=== PATIENT | female | born 1955 | race Caucasian/White ===

== ENCOUNTER 2022-05-07 07:49 | Outpatient (CLI) | payer OTHER, SELFPAY ==
--- OUTSIDE RECORDS SUMMARY | 2022-05-07 08:08 | XMS_ITS | Encounter Summary ---
:1955 Author Organization [place] Address [address] [facility] [place] [address] Care Team Providers Name Role Phone Linh Moeller MD Primary Care Provider [phone] Linh Moeller MD Unavailable Linh Moeller MD Unavailable Reason for Visit Reason Comments URI Encounter Details Date Type Department Care Team Description 09/25/2015 Office Visit [facility] Linh Moeller Viral URI with cough (Primary Dx); Clinic Chuck Londono MD Advanced directives, counseling/discussi on; [address] [facility] [address] [facility] Visit for screening mammogram; [place], [place] [address] Cervical cancer screening; [id number] Encounter for screening colonoscopy [phone] Social History Tobacco Use Types Packs/Day Years Used Date Smoking Tobacco: Never Smokeless Tobacco: Never Alcohol Use Standard Drinks/Week Comments Yes 0 (1 standard drink = 0.6 oz pure alcoho l) rare Sex Assigned at Date Recorded Not on file documented as of this encounter Last Filed Vital Signs Vital Sign Reading Time Taken Comments Blood Pressure 108/62 09/25/2015 7:51 AM ORDER BUILDER LOADER Pulse 68 09/25/2015 7:51 AM ORDER BUILDER LOADER Temperature 36.8 ??C (98.3 ??F) 09/25/2015 7:51 AM ORDER BUILDER LOADER Respiratory Rate - - Oxygen Saturation 96% 09/25/2015 7:51 AM ORDER BUILDER LOADER Inhaled Oxygen Concentration - - Weight 69.4 kg (153 lb) 09/25/2015 7:51 AM ORDER BUILDER LOADER Height 167.6 cm (5' 6) 09/25/2015 7:51 AM ORDER BUILDER LOADER Body Mass Index 24.69 09/25/2015 7:51 AM ORDER BUILDER LOADER documented in this encounter Patient Instructions Patient InstructionsLinh Moeller MD - 09/25/2015 8:53 AM CST Consider Mucinex R BUILDER LOADER documented in this encounter Progress Notes Linh Moeller MD - 09/25/2015 7:53 AM CST SUBJECTIVE: Rehana Tsang is a 59 year old female who presents to clinic today for the following health issues: RESPIRATORY SYMPTOMS ?? Duration: x 7 days ?? Description rhinorrhea, nasal congestion, sore throat, facial pain/pressure, productive cough, fever, chills, headache, fatigue/malaise and eyes are watering ?? Severity: moderate ?? Accompanying signs and symptoms: see above ?? History (predisposing factors): none ?? Precipitating or alleviating factors: None ?? Therapies tried and outcome: Took Therimax last night Feels like symptoms have been stable over the past few days. No fevers in the past couple of days. Has not been able to work due to her illness. Problem list and histories reviewed & adjusted, as indicated. Additional history: none Patient Active Problem List Diagnosis ??? PURE HYPERCHOLESTEROLEM ??? 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 Advanced directives, counseling/discussion Past Surgical History Procedure Laterality Date ??? C jewel hole finish opener procedure date: 2000 hysterectomy abdominal endomet ??? Rw jewel hole finish opener (abstracted) 1976 appy ??? Rw jewel hole finish opener (abstracted) kidney stones ??? C vag hyst,rmv tube/ovary 2000 History Substance Use Topics ??? Smoking status: Never Smoker ??? Smokeless tobacco: Never Used ??? Alcohol Use: 0.0 oz/week 0 Standard drinks or equivalent per week Comment: rare Family History Problem Relation Age of Onset ??? Breast Cancer Maternal Grandmother ??? Heart Disease Father DC age 52 Current Outpatient Prescriptions Medication Sig Dispense Refill ??? predniSONE (DELTASONE) 20 MG tablet Take 2 tablets (40 mg) by mouth daily for 5 days 10 tablet 0 ??? albuterol (PROAIR HFA, PROVENTIL HFA, VENTOLIN HFA) 108 (90 BASE) MCG/ACT inhaler Inhale 2 puffsinto the lungs every 4 hours as needed 1 Inhaler 1 ??? guaiFENesin-codeine (ROBITUSSIN AC) 100-10 MG/5ML SOLN Take 10 mLs by mouth every 4 hours as needed for cough 120 mL 0 ??? LIPITOR 80 MG OR TABS one daily 30 5 ROS: Constitutional, HEENT, cardiovascular, pulmonary, gi and gu systems are negative, except as otherwise noted. OBJECTIVE: BP 108/62 mmHg Pulse 68 Temp(Src) 98.3 ??F (36.8 ??C) (Oral) Ht 5' 6 (1.676 m) Wt 153 lb (69.4 kg) BMI 24.71 kg/m2 SpO2 96% LMP Body mass index is 24.71 kg/(m^2). GENERAL: healthy, alert and no distress EYES: Eyes grossly normal to inspection, conjunctivae and sclerae normal HENT: Bilateral TMs with serous effusion, mild pharyngitis, cobblestoning of the posterior pharynx, boggy turbinates NECK: Anterior cervical chain lymphadenopathy bilaterally RESP: Good air entry, lungs symmetric, harsh nonproductive cough, no wheezes CV: regular rate and rhythm, normal S1 S2, no S3 or S4, no murmur, click or rub Diagnostic Test Results: none ASSESSMENT/PLAN: 1. Viral URI with cough: Discussed treatment options. Advised to call should symptoms worsen despitetreatment. - predniSONE (DELTASONE) 20 MG tablet; Take 2 tablets (40 mg) by mouth daily for 5 days Dispense: 10tablet; Refill: 0 - albuterol (PROAIR HFA, PROVENTIL HFA, VENTOLIN HFA) 108 (90 BASE) MCG/ACT inhaler; Inhale 2 puffs into the lungs every 4 hours as needed Dispense: 1 Inhaler; Refill: 1 - guaiFENesin-codeine (ROBITUSSIN AC) 100-10 MG/5ML SOLN; Take 10 mLs by mouth every 4 hours as needed for cough Dispense: 120 mL; Refill: 0 2. Advanced directives, counseling/discussion 3. Visit for screening mammogram: Historical mammogram entered - MA Screening Digital Bilateral 4. Cervical cancer screening: History of Pap smear entered - PAP imaged thin layer screen 5. Encounter for screening colonoscopy: Historical colonoscopy entered - COLONOSCOPY Follow-up as needed for ongoing issues Linh Moeller MD [facility] R BUILDER LOADER documented in this encounter Nursing Notes Andrew Valentine CMA - 09/25/2015 7:58 AM CST Chief Complaint Patient presents with ??? URI Initial BP 108/62 mmHg Pulse 68 Temp(Src) 98.3 ??F (36.8 ??C) (Oral) Ht 5' 6 (1.676 m) Wt 153 lb (69.4 kg) BMI 24.71 kg/m2 SpO2 96% LMP Estimated body mass index is 24.71 kg/(m^2) as calculated from the following: Height as of this encounter: 5' 6 (1.676 m). Weight as of this encounter: 153 lb (69.4 kg). BP completed using cuff size: dinesh Valentine CMA R BUILDER LOADER documented in this encounter Plan of Treatment Not on filedocumented as of this encounter Procedures Procedure Name Priority Date/Time Associated Diagnosis Comme nts PAP IMAGED THIN LAYER Routine 09/23/2014 Cervical cancer Res ults for this SCREEN screening procedure are i n the results section . MA SCREENING DIGITAL Routine 09/23/2014 Visit for screening Results for this BILATERAL mammogram procedure are i n the results section . COLONOSCOPY Routine 09/23/2014 Encounter for Results for th is screening colonoscopy proced ure are in the results section . documented in this encounter Results COLONOSCOPY (09/23/2014) P athologist Signature COLONOSCOPY nl Comment: hx Specimen (Source) Anatomical Location Collection Method / Collectio n Time Received Time / Laterality Volume 09/23/2014 Linh Moeller MD PROCEDURES PAP imaged thin layer screen (09/23/2014) P athologist Signature PAP Date NL MISYS Comment: hx PAP MISYS Specimen (Source) Anatomical Location Collection Method Collection Time Received Time / Laterality / Volume Cytologic material 09/23/2014 (specimen) Linh Moeller MD LAB - OPTIME CLINICAL SPECIM EN Performing Organization Address City/State/ZIP Code Phon e Number MISYS [place] Screening Digital Bilateral (09/23/2014) P athologist Signature MAMMOGRAM NL Comment: HX Anatomical Region Laterality Modality Breast Bilateral Other Specimen (Source) Anatomical Location Collection Method / Collectio n Time Received Time / Laterality Volume 09/23/2014 Linh Moeller MD IMG MAMMOGRAPHY ORDERABLES documented in this encounter Visit Diagnoses Diagnosis Viral URI with cough - Primary Acute upper respiratory infections of un specified site Advanced directives, counseling/discussi on Other specified counseling Visit for screening mammogram Other screening mammogram Cervical cancer screening Screening for malignant neoplasm of the cervix Encounter for screening colonoscopy Special screening for malignant neoplasm s, colon documented in this encounter Care Teams Burglary Investigator Relationship Specialty Start Date End Date Linh Moeller MD PCP - General Family Practice 09/25/15 [address] [place] [address] Linh Moeller MD PCP - Assigned PCP 09/07/15 09/27/18 [address] [place] [address] Linh Moeller MD Assigned PCP 09/07/15 09/24/18 [address] [place] [address] documented as of this encounter
--- OUTSIDE RECORDS SUMMARY | 2022-05-07 08:08 | XMS_ITS | Encounter Summary ---
:1955 Author Organization [place] Address [address] [place] [address] Care Team Providers Name Role Phone Linh Moeller MD Primary Care Provider [phone] Encounter Details Date Type Department Care Team Description 06/10/[address] [facility] Kelin Sierra MD Encounter for [facility] screening for other [address] [facility] [address] [facility] viral diseases ROBYN CRAMER [id number] 410 (Primary Dx) [phone] [place], [place] [address] (Wo rk) Social History Tobacco Use Types Packs/Day Years Used Date Smoking Tobacco: Never Smokeless Tobacco: Never Alcohol Use Standard Drinks/Week Comments Yes 0 (1 standard drink = 0.6 oz pure alcoho l) rare Sex Assigned at Date Recorded Not on file documented as of this encounter Plan of Treatment Not on filedocumented as of this encounter Results Asymptomatic COVID-19 Virus (Coronavirus) by PCR (06/10/2020 3:53 PM LEAD INFRASTRUCTURE ARCHITECT) [facility] Method Time Signature COVID-19 Nasopharyngeal 06/10/2020 [facility] Virus PCR to 4:04 PM LEAD INFRASTRUCTURE ARCHITECT CLINICS [facility] Source COVID-19 Not Detected 06/11/2020 [facility] Virus PCR to 8:31 PM LEAD INFRASTRUCTURE ARCHITECT RESEARCH AND U [facility] - DIAGNOSTIC Result LABORATORY, [facility] Comment: Collection of multiple specimens from th e same patient may be necessary to detect the virus. The possibility of a f alse negative should be considered if the patient's recent exposure or clinica l presentation suggests 2019 nCOV infection and diagnostic tests for other causes of illness are negative. Repeat testing may be considered in this setting. Patient sample was heat inactivated and amplified using the HDPCR SARS-CoV-2 assay (ERUCES.). The HDPCRTM MINESH S-CoV-2 assay is a reverse deputy sheriff/investigator real-time polymerase chain reaction (qRT-PCR) test intended for the qualitative detection of nucleic aci d from SARS-CoV-2 in human nasopharyngeal swabs, oropharyngeal swabs, anterior nasal swabs, mid-turbinate nasal swabs a s well as nasal aspirate, nasal wash, and bronchoalveolar lavage (BAL) specime ns from individuals who are suspected of COVID-19 by their healthcare provider . A negative result does not rule out the presence of real-time PCR inhibitors in the specimen or COVID-19 RNA in serina ntrations below the limit of detection of the assay. The possibility of a fals e negative should be considered if the patients recent exposure or clinical pr esentation suggests COVID-19. Additional testing or repeat testing req uires consultation with the laboratory. Nasopharyngeal specimen is the preferred choice for swab-based SARS CoV2 testing. When collection of a nasopharyn geal swab is not possible the following are acceptable alternatives: an oropharyngeal (OP) specimen collected by a healthcare professional, or a nasal mid-turbinate (NMT) swab collected by a healthcare professional or by onsite self-collection (using a flocked tapered swab), or an anterior nares specimen collected by a healthcare profe ssional or by onsite self-collection (using a round foam swab). (Centers for Disease Control) Testing performed by [facility] ([facility]) [address] [place] [address] [place] [id number] The test performance characteristics wer e determined by [facility]. It has not been cleared or approved by the FDA. The laboratory is regulated under the Cl inical Laboratory Improvement Amendments of 1988 (CLIA-88) as qualifie d to perform high-complexity testing. This test is used for clinical purposes. It should not be regarded as investigational or for research. Specimen (Source) Anatomical Collection Method Collection Time Re ceived Time Location / / Volume Laterality Specimen from 06/10/2020 3:53 06/10/2020 nasopharyngeal PM LEAD INFRASTRUCTURE ARCHITECT 3:54 PM LEAD INFRASTRUCTURE ARCHITECT structure (specimen) Tiana Sierra MD LAB - MICRO GENERAL ORDERABL ES Performing Organization Address City/State/ZIP Code Phon e Number [facility] [place] [place] [address] DIAGNOSTIC LABORATORY, [address] [facility] [address] [address] K[place]ERINE documented in this encounter Visit Diagnoses Diagnosis Encounter for screening for other viral diseases - Primary documented in this encounter Care Teams Switch Coupler Relationship Specialty Start Date End Date Linh Moeller MD PCP - General Family Practice 09/25/15 [address] [place] [address] documented as of this encounter
--- OUTSIDE RECORDS SUMMARY | 2022-05-07 08:08 | XMS_ITS | Encounter Summary ---
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) Encounter for breast reconstruction following mastectomy [Z42.1] Periop Services Malignant neoplasm of upper- outer quadrant of right female breast (H) [C50.411] [address], [address] Procedures HC REPLACE TISSUE OPENER TENDER HC REMOVE W/O INSERT PROSTH TISSUE OPENER TENDER HC ENLARGE BREAST WITH IMPLANT HC REMOVAL OF BREAST IMPLANT HC REMOVAL OF IMPLANT MATERIAL LEFT REMOVAL OF TISSUE OPENER TENDER EXCHANGE OF SILICONE BREAST IMPLANT [address] [place] [place] [address] Phone: Referral ID Status Reason Start Date Expiration Date Visits Requ ested Visits Authorized [id number] 1 1 Encounter Details Date Type Department Care Team Description 06/13/2020 Anesthesia Event [facility] Ramses Tripp MD [facility] [address] [id number] Niharika TejadaOP Katty Alex, MANAGER TREASURY SURG RN [address] [id number] Services [address], [address] [place] [address] Anesthesia Record Procedure Summary Procedure Name Responsible Anesthesia Start Anesthesia Stop Time Anesthesiologist Time LEFT REMOVAL OF Rick Tripp MD 06/13/20 1134 06/13/20 1 331 TISSUE OPENER TENDER (Left: Breast) Events Date Time Event Comment 06/13/2020 1134 An Start 1134 An Start Data 1134 Quick Note H&P BP 86/64 1145 MD Present 1145 An Induction 1147 An LMA 1201 AN INCISION 1255 MD Present 1321 LMA Removed 1325 an stop data 1331 An Stop Electronically s igned by Katty Alex APRN CRNA on June 13, 2020 1:35 PM Name Total dexamethasone 4mg/mL 4 mg ePHEDrine 5 mg/mL 17.5 mg fentaNYL (SUBLIMAZE) injection 100 mcg glycopyrrolate 0.2mg/mL 0.1 mg lidocaine 2% 100 mg midazolam 1mg/mL 2 mg ondansetron 2mg/mL 4 mg phenylephrine (SHANAE-SYNEPHRINE) injection 800 mcg propofol (DIPRIVAN) injection 10 mg/mL vial 150 mg propofol infusion (mcg/kg/min) 124.25 mg ceFAZolin (ANCEF) intermittent infusion 2 g in 100 mL dextrose PRE-MIX 2 g LR 1,300 mL Agents Name NO HELIOX O2 N2O Air Exp Sevoflurane Exp Isoflurane Exp Desflurane Exp N2O Ins Sevoflurane Ins Isoflurane Ins Desflurane O2 Auxiliary Blood No blood administrations on file. Lines, Drains, and Airways Type Details Placement Removal Incision/Surgical Site 06/13/20; 1209; Right; 06/13/20 1209 by Chest; PORT REMOVAL Emelyn David RN Incision/Surgical Site 06/13/20; 1257; Left; 06/13/20 1257 by Breast Emelyn David RN Supraglottic Airway Placement Date: 06/13/20 1147 by 06/13/20 13 23 by 06/13/20; Placement Katty Aelx Rebecca Time: 1147 (created ALLEN Franco CRNA, APRN CR NA via procedure documentation); Airway Type: Standard LMA; Mask Ventilation: 1; LMA Size: 4; Airway Brand: LMA Unique; Attempts: 1 documented in this encounter Social History Tobacco Use Types Packs/Day Years Used Date Smoking Tobacco: Never Smokeless Tobacco: Never Alcohol Use Standard Drinks/Week Comments Yes 0 (1 standard drink = 0.6 oz pure alcoho l) rare Sex Assigned at Date Recorded Not on file COVID-19 Exposure Response Date Recorded In the last month, have you been in contact with No / Unsure 06/13/2020 9:02 AM JAVA USER INTERFACE DEVELOPER someone who was confirmed or suspected to have Coronavirus / COVID-19? 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 Anesthesia Type: General Note: Anesthesia Post Evaluation Patient location during evaluation: Bedside Patient participation: Able to fully participate in evaluation Level of consciousness: awake and alert Pain management: adequate Airway patency: patent Cardiovascular status: acceptable Respiratory status: acceptable Hydration status: acceptable PONV: none Last vitals: Vitals: 06/13/20 1345 06/13/20 1400 06/13/20 1515 BP: 105/61 104/56 108/58 Pulse: 80 79 Resp: 10 14 14 Temp: 35.9 ??C (96.6 ??F) 35.9 ??C (96.6 ??F) SpO2: 99% 100% 99% Electronically Signed By: Rick Tripp MD June 13, 2020 4:30 PM USER INTERFACE DEVELOPER Anesthesia Procedure Notes - Katty Alex APRN CRNA - 06/13/2020 12:04 PM CSTAssociated Order(s): Airway Airway Date/Time: 06/13/2020 11:47 AM Staff - SURG RN: Katty Alex APRN SURG RN Performed By: SURG RN Consent for Airway Urgency: elective Indications and Patient Condition Indications for airway management: kimi-procedural Induction type:intravenousMask difficulty assessment: 1 - vent by mask Final Airway Details Final airway type: supraglottic airway Endotracheal Airway Details Secured with: commercial tube cervantes and pink tape Post intubation assessment Placement verified by: capnometry and equal breath sounds Number of attempts at approach: 1 Secured with:commercial tube cervantes and pink tape Ease of procedure: easy Dentition: Intact and Unchanged USER INTERFACE DEVELOPER Anesthesia Preprocedure Evaluation - Rick Tripp MD - 06/13/2020 9:56 AM CST Anesthesia Pre-Procedure Evaluation Patient: Rehana Merino : 1955 Preoperative Diagnosis: Encounter for breast reconstruction following mastectomy [Z42.1] 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 Absence of menstruation ??? Acute upper respiratory infections of unspecified site 10/02/03 ??? Endometriosis, site unspecified 2000 ??? Irritable bowel syndrome ??? Malignant neoplasm of ovary (H) ??? Migraines ??? Noninfectious ileitis IBS ??? Other calculus in bladder ??? Outcome of delivery, single liveborn X2 ??? Pure hypercholesterolemia ??? Unspecified hemorrhoids without mention of complication Past Surgical History: Procedure Laterality Date ??? BREAST SURGERY Bilateral 08/2019 mastectomy ??? BREAST SURGERY 12/2019 breast reconstruction ??? C ECCLESIASTICAL WORKER PROCEDURE DATE: 2000 hysterectomy abdominal endomet ??? C VAG HYST,RMV TUBE/OVARY 2000 ??? RW ECCLESIASTICAL WORKER (ABSTRACTED) 1975 appy ??? RW ECCLESIASTICAL WORKER (ABSTRACTED) kidney stones Anesthesia Evaluation . Pt has had prior anesthetic. Type: General ROS/MED HX ENT/Pulmonary: Neurologic: (+)migraines, Cardiovascular: (+) Dyslipidemia, ----. : . . . :. . Previous cardiac testing Echodate:01/2020results:Normal EF, I/IVLV diastolic dysfunctiondate: results: date: results: date: results: METS/Exercise Tolerance: Hematologic: Musculoskeletal: GI/Hepatic: Renal/Genitourinary: Endo: Psychiatric: Infectious Disease: Malignancy: (+) Malignancy History of Breast Breast CA status post Surgery. Other: Lab Results Component Value Date TSH 3.30 06/23/2004 Preop Vitals BP Readings from Last 3 Encounters: 06/13/20 103/53 09/25/15 108/62 06/23/04 102/60 Pulse Readings from Last 3 Encounters: 06/13/20 78 09/25/15 68 06/23/04 80 Resp Readings from Last 3 Encounters: 06/13/20 18 SpO2 Readings from Last 3 Encounters: 06/13/20 96% 09/25/15 96% Temp Readings from Last 1 Encounters: 06/13/20 36.3 ??C (97.3 ??F) (Oral) Ht Readings from Last 1 Encounters: 06/13/20 1.676 m (5' 6) Wt Readings from Last 1 Encounters: 06/13/20 71 kg (156 lb 9.6 oz) Estimated body mass index is 25.28 kg/m?? as calculated from the following: Height as of this encounter: 1.676 m (5' 6). Weight as of this encounter: 71 kg (156 lb 9.6 oz). Anesthesia Plan History & Physical Review History and physical reviewed and following examination; no interval change. ASA Status: 3 . NPO Status: > 8 hours Plan for General (LMA) with Intravenous and Propofol induction. Maintenance will be Balanced. PONV prophylaxis: Ondansetron (or other 5HT-3) and Dexamethasone or Solumedrol Postoperative Care Postoperative pain management: Multi-modal analgesia. Consents Anesthetic plan, risks, benefits and alternatives discussed with: Patient.. 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 Anesthesia Type: General Note: Airway :Nasal Cannula Patient transferred to:PACU Comments: At end of procedure, spontaneous respirations, adequate tidal volumes, followed commands to voice, LMA removed atraumatically, airway patent after LMA removal. Oxygen via nasal cannula at 3 liters per minute to PACU. Oxygen tubing connected to wall O2 in PACU, SpO2, NiBP, and EKG monitors and alarms on and functioning, Malika Hugger warmer connected to patient gown, report on patient's clinical status given to EXTRACTIONS TECHNICIAN, RN questions answered.Handoff Report: Identifed the Patient, Identified the Reponsible Provider, Reviewed the pertinent medical history, Discussed the surgical course, Reviewed Intra-OP anesthesia mangement and issues during anesthesia, Set expectations for post- procedure period and Allowed opportunity for questions and acknowledgement of understanding Vitals: (Last set prior to Anesthesia Care Transfer) DEANNA VITALS 06/13/2020 1255 - 06/13/2020 1334 06/13/2020 Resp Rate (set): 10 108/65 SPO2 99 HR 81 Electronically Signed By: Katty Alex APRN CRNA June 13, 2020 1:34 PM USER INTERFACE DEVELOPER documented in this encounter Plan of Treatment Not on filedocumented as of this encounter Procedures Procedure Name Priority Date/Time Associated Comments Diagnosis ANE AIRWAY Routine 06/13/2020 12:04 Results for this SUPRAGLOTTIC PM JAVA USER INTERFACE DEVELOPER procedure are i n PERFORMABLE the results section. documented in this encounter Results ANE AIRWAY SUPRAGLOTTIC PERFORMABLE (06/13/2020 12:04 PM JAVA USER INTERFACE DEVELOPER) Narrative Katty Alex APRN CRNA - 05/26 12:04 PM JAVA USER INTERFACE DEVELOPER Katty Alex APRN CRNA ? 06/13/2020 12:05 PM Airway Date/Time: 06/13/2020 11:47 AM Staff - SURG RN: Katty Alex APRN CRNA Performed By: DEANNA Consent for Airway Urgency: elective Indications and Patient Condition Indications for airway management: kimi- procedural Induction type:intravenousMask difficult y assessment: 1 - vent by mask Final Airway Details Final airway type: supraglottic airway Endotracheal Airway Details Secured with: commercial tube cervantes and pink tape Post intubation assessment Placement verified by: capnometry and eq ual breath sounds Number of attempts at approach: 1 Secured with:commercial tube cervantes and pink tape Ease of procedure: easy Dentition: Intact and Unchanged Rick Tripp MD [place] [facility] documented in this encounter Visit Diagnoses Not on filedocumented in this encounter Administered Medications Inactive Administered Medications - up to 3 most recent administrations Medication Order MAR Action Action Date Dose Rate Site ceFAZolin (ANCEF) intermittent Given 06/13/2020 11:55 AM JAVA USER INTERFACE DEVELOPER 2 g infusion 2 g in 100 mL dextrose PRE-MIX Routine, 2 g, Intravenous, PRE-OP/PRE-PROCEDURE, Starting on Tova 06/13/20 at 0913, For 1 dose, Give first dose within 1 hour PRIOR to incision. If patient weight is greater than or equal to 120 kg increase dose to 3 g., Indications: Perioperative Pharmacoprophylaxis, Pre-procedure dexamethasone (DECADRON) injection Given 06/13/2020 11:50 AM JAVA USER INTERFACE DEVELOPER 4 mg PRN, Administer over 1 Minutes, Starting on Tova 06/13/20 at 1150, Anesthesia Intra-op ePHEDrine injection Given 06/13/2020 12:44 PM JAVA USER INTERFACE DEVELOPER 5 mg PRN, Starting on Tova 06/13/20 at 1152, Anesthesia Intra-op Given 06/13/2020 12:13 PM JAVA USER INTERFACE DEVELOPER 7.5 mg Given 06/13/2020 11:52 AM JAVA USER INTERFACE DEVELOPER 5 mg fentaNYL (PF) (SUBLIMAZE) injection Given 06/13/2020 12:29 PM JAVA USER INTERFACE DEVELOPER 25 mcg PRN, Administer over 3-5 Minutes, Starting on Tova 06/13/20 at 1141, Anesthesia Intra-op Given 06/13/2020 12:07 PM JAVA USER INTERFACE DEVELOPER 25 mcg Given 06/13/2020 11:41 AM JAVA USER INTERFACE DEVELOPER 50 mcg glycopyrrolate (ROBINUL) injection Given 06/13/2020 12:18 PM JAVA USER INTERFACE DEVELOPER 0.1 mg PRN, Administer over 1-2 Minutes, Starting on Tova 06/13/20 at 1218, Anesthesia Intra-op lactated ringers infusion New Bag 06/13/2020 12:23 PM JAVA USER INTERFACE DEVELOPER Intravenous, CONTINUOUS PRN, Anesthesia Intra-op, Starting on Tova 06/13/20 at 1137, Until Tova 06/13/20 at 1335 New Bag 06/13/2020 11:37 AM JAVA USER INTERFACE DEVELOPER lidocaine 2% injection (MDV) Given 06/13/2020 11:45 AM JAVA USER INTERFACE DEVELOPER 100 mg PRN, Starting on Tova 06/13/20 at 1145, Anesthesia Intra-op midazolam (VERSED) injection Given 06/13/2020 11:36 AM JAVA USER INTERFACE DEVELOPER 2 mg Administer over 2 Minutes, PRN, Starting on Tova 06/13/20 at 1136, Anesthesia Intra-op ondansetron (ZOFRAN) injection Given 06/13/2020 12:52 PM JAVA USER INTERFACE DEVELOPER 4 mg PRN, Administer over 2-5 Minutes, Starting on Tova 06/13/20 at 1252, Anesthesia Intra-op phenylephrine (SHANAE-SYNEPHRINE) injection Bolus 06/13/2020 12:44 PM JAVA USER INTERFACE DEVELOPER 100 mcg CONTINUOUS PRN, Starting on Tova 06/13/20 at 1148, Anesthesia Intra-op Bolus 06/13/2020 12:31 PM JAVA USER INTERFACE DEVELOPER 100 mcg Bolus 06/13/2020 12:24 PM JAVA USER INTERFACE DEVELOPER 50 mcg propofol (DIPRIVAN) infusion New Bag 06/13/2020 11:45 AM 25 mcg/kg/min 10.7 mL/hr Intravenous, CONTINUOUS PRN, JAVA USER INTERFACE DEVELOPER Starting on Tova 06/13/20 at 1145, Anesthesia Intra-op propofol (DIPRIVAN) injection 10 mg/mL v ial Given 06/13/2020 11:45 AM JAVA USER INTERFACE DEVELOPER 150 mg PRN, Starting on Tova 06/13/20 at 1145, Anesthesia Intra-op documented in this encounter Care Teams Gusset Folder Relationship Specialty Start Date End Date Linh Moeller MD PCP - General Family Practice 09/25/15 [address] [place] [address] documented as of this encounter
--- OUTSIDE RECORDS SUMMARY | 2022-05-07 08:08 | XMS_ITS | Encounter Summary ---
:1955 Author Organization [facility] Address [address] [place] [address]. [place] [address] Care Team Providers Name Role Phone Uvaldo Hills MD Unavailable Reason for Visit Reason Comments Physical Encounter Details Date Type Department Care Team Description 06/23/2004 Office Visit [facility] Uvaldo Hills MD ROUTINE MEDICAL EXAM (Primary Dx); System in [facility] HY PERCHOLESTEROLEM; SENIOR CONSTRUCTION MANAGER [place] [facility]TOMAT[facility] FEMALE [facility]ACT[facility] STATE [address] [place] [address] [address] [address] [place], [place] [phone] (Wo rk) Social History Tobacco Use Types Packs/Day Years Used Date Smoking Tobacco: Never Assessed Sex Assigned at Date Recorded Not on file documented as of this encounter Last Filed Vital Signs Vital Sign Reading Time Taken Comments Blood Pressure 102/60 06/23/2004 9:57 AM SECONDARY SCHOOL SPECIAL ED TEACHER Pulse 80 06/23/2004 9:57 AM [employer] S[employer] SPECIAL ED TEACHER Temperature - - Respiratory Rate - - Oxygen Saturation - - Inhaled Oxygen Concentration - - Weight 62.1 kg (137 lb) 06/23/2004 9:57 AM SEC[employer]ARY SCHOOL SPECIAL ED TEACHER Height 168.1 cm (5' 6.2) 06/23/2004 9:57 AM SECONDARY SCHOOL SPECIAL ED TEACHER Body Mass Index 21.98 06/23/2004 9:57 AM SEC[employer] SCHOOL SPECIAL ED TEACHER documented in this encounter Progress Notes 06/23/2004 9:30 AM SECONDARY SCHOOL SPECIAL ED TEACHER Rehana is a 48 year old white female, SAB1, here for her annual exam. She has had ANTHONY, BSO because of endometriosis. She is on premarin 0.9 mg daily, but has noted hot flashes as night in the last couple of months. She has noted spotting but is not sure if it vaginal or rectal. She does have hemorrhoids. She is on Lipitor for elevated cholesterol. Sylvia has noted stress urine incont. with exercising. She wears a pad when she is active but not at other times. It has not changed her life style or activities. Sanitation Worker Cleaning Equipment HX: no abnormal paps, no infections, PAST MEDICAL HISTORY: Hyperlipidemia surgical menopause history endometriosis PAST SURGICAL HISTORY: Review of patient's past surgical history indicates: SENIOR CONSTRUCTION MANAGER PROCEDURE DATE: 2000 Comment: hysterectomy abdominal endomet RW SENIOR CONSTRUCTION MANAGER (ABSTRACTED) 1975 Comment: appy RW SENIOR CONSTRUCTION MANAGER (ABSTRACTED) Comment: kidney stones Meds as of 06/23/2004: CLIMARA 0.075 MG/24HR TD PTWK 1 patch q week Lipitor 80 mg daily ALLERGIES: No Known Allergies Family HX: Review of patient's family history indicates: Diabetes No family hx of Stroke No family hx of Breast CA Maternal Grandmother Colon CA No family hx of Prostatic CA No family hx of Alzheimers No family hx of Cancer No family hx of Heart Father Comment: mi Thyroid No family hx of REVIEW OF SYSTEMS: Otherwise negative unless specified in HPI. NEUROLOGIC: negative EYES: negative,exam yearly ENT: negative, dental cleaning every 6 mo GI: hemorrhoids BREAST: negative : negative CORE BAKER: negative CV: negative PULMONARY: negative MUSCULOSKELETAL: negative PSYCH: negative SKIN: negative Soc Hx: Social History Marital Status: Spouse Name: Years of Education: Number of children: Social History Main Topics Tobacco Use: No Alcohol Use: rare Drug Use: No Sexually Active: yes Other Topics Concern BLOOD TRANSFUSIONS Yes Comment: hysterectomy 2000 CAFFEINE No SLEEP CONCERN No STRESS CONCERN No WEIGHT CONCERN No DIET No BACK CARE No EXERCISE Yes SEAT BELT Yes SELF EXAMS Yes Social History Narrative None on file PHYSICAL EXAM: This is a well-developed, well-nourished female in no apparent distress. VITALS: as above Neruo: grossly intact EYES: LAINE, EOM's intact. ENT: oral cavity normal, no neck nodes, thyroid not enlarged, neck supple Lung CTA, no wheezing, easy respairations Heart: RRR, S1 and S2 clear, no murmur Back: no spinal or CVA tenderness Breast: soft, nontender, no mass or axillary lymphadenopathy or discharge. ABD: thin, soft, nontender, no masses Pelvic: normal ext gen, normal BUS, no lesions, no adenopathy Urethra: normal meatus Vagina: normal, no lesions. mod-large cystocele, minimal rectocele. No lesions or evidence of causeof bleeding. Cervix and Uterus and ovaries: surgically abscent. Adnexa: nontender with out masses or iregularities RV:confirms above with no lesions palpable, hemorrhoids present. EXT: no edema, calf tenderness or significant varicosities Skin: no lesions of concern Assessment: Annual exam possible rectal bleeding surgical menopause. Plan: mammogram to be done in [place] TSH Change to [place] .75mg patch Ask Dr. Jeter for consult with GI med. documented in this encounter Nursing Notes 06/23/2004 9:30 AM CST >> SYLVIA LIN 06/23/2004 9:58 am phy,wants to change the premarin, ? going on patch, Will get mammo in [place] Pain Questionnaire:Is your visit today because of Pain? NO documented in this encounter Plan of Treatment Not on filedocumented as of this encounter Procedures Procedure Name Priority Date/Time Associated Comments Diagnosis HCL TSH Routine 06/23/2004 10:50 AM Routine Medical Resul ts for this SECONDARY SCHOOL SPECIAL ED TEACHER Exam procedure are i n the results section. HC VENOUS COLLECTION Routine 06/23/2004 10:45 AM Routine Medic al SEC[employer]ARY SCHOOL SPECIAL ED TEACHER Exam documented in this encounter Results TSH- (06/23/2004 10:50 AM SECONDARY SCHOOL SPECIAL ED TEACHER) P athologist Signature TSH 3.30 0.4 - 5.0 [facility] Specimen Anatomical Collection Method Collection Time Receive d Time (Source) Location / / Volume Laterality 06/23/2004 10:50 06/23/2004 AM [employer] SPECIAL ED TEACHER 10:56 AM [employer] SPECIAL ED TEACHER Uvaldo Hills MD LABORATORY Performing Organization Address City/State/ZIP Code Phon e Number [facility] [address] documented in this encounter Visit Diagnoses Diagnosis Routine general medical examination at a health care facility - Primary Pure hypercholesterolemia Symptomatic menopausal or female climact ming states documented in this encounter Care Teams Engine Boss Relationship Specialty Start Date End Date Uvaldo Hills MD PCP - Obstetrics/Gynecology 03/28/0305/[address] [place] [address] documented as of this encounter
--- OUTSIDE RECORDS SUMMARY | 2022-05-07 08:08 | XMS_ITS | Clinical Summary ---
:1955 Author Organization [place] Address [address] [facility] [place] [address] Care Team Providers Name Role Phone Linh Moeller MD Primary Care Provider [phone] Allergies Active Allergy Reactions Severity Noted Date Comments No Known Allergies 06/23/2004 Medications Medication Sig Dispensed Refills Start Date End Date Status SERTRALINE HCL PO Take 100 mg by 0 Active mouth daily ezetimibe (ZETIA) 10 MG Take 10 mg by 0 Active tablet mouth daily SIMVASTATIN PO Take 80 mg by 0 A ctive mouth At Bedtime acetaminophen (TYLENOL) Take 500-1,000 mg 0 Active 500 MG tablet by mouth every 6 hours as needed for mild pain Multiple Take by mouth 0 Active Vitamins-Minerals daily (MULTIVITAMIN ADULT PO) oxyCODONE-acetaminophen Take 1-2 tablets 30 tablet 0 0 Active (PERCOCET) 5-325 MG by mouth every 4 tabletIndications: hours as needed Status post breast for moderate to reconstruction severe pain senna-docusate Take 1-2 tablets 30 tablet 0 06/13/2020 Active (SENOKOT-S/PERICOLACE) by mouth 2 times 8.6-50 MG daily tabletIndications: Status post breast reconstruction montelukast (SINGULAIR) Take 1 tablet (10 90 tablet 1 06/13/20 20 Active 10 MG mg) by mouth At tabletIndications: Bedtime Status post breast reconstruction Active Problems Problem Noted Date Advanced directives, counseling/discussion 09/25/2015 Overview: Advance Care Planning 09/25/2015: ACP Faci litation Session: Rehana Tsang presented for ACP Facilitation session at the clinic. She was accompanied by self. Honoring Choices information provided and resources reviewed. She currently declined Pure hypercholesterolemia 06/23/2004 Symptomatic menopausal or female climacteric states Immunizations Name Administration Dates Next Due HEPA 12/08/2010, 10/31/2009 Tdap (Adacel,Boostrix) 04/28/2012 Family History Medical History Relation Comments Heart Disease Father [place] age 52 Breast Cancer Maternal Grandmother Relation Status Comments Father Maternal Grandmother Mother Alive Social History Tobacco Use Types Packs/Day Years Used Date Smoking Tobacco: Never Smokeless Tobacco: Never Alcohol Use Standard Drinks/Week Comments Yes 0 (1 standard drink = 0.6 oz pure alcoho l) rare Sex Assigned at Date Recorded Not on file Last Filed Vital Signs Vital Sign Reading Time Taken Comments Blood Pressure 108/58 06/13/2020 3:15 PM [facility] Pulse 79 06/13/2020 2:00 PM [facility] Temperature 35.9 ??C (96.6 ??F) 06/13/2020 2:00 PM [facility] Respiratory Rate 14 06/13/2020 3:15 PM [facility] Oxygen Saturation 99% 06/13/2020 3:15 PM [facility] Inhaled Oxygen Concentration - - Weight 71 kg (156 lb 9.6 oz) 06/13/2020 9:39 AM [facility] Height 167.6 cm (5' 6) 06/13/2020 9:39 AM [facility] Body Mass Index 25.28 06/13/2020 9:39 AM [facility] Plan of Treatment Health Maintenance Due Date Last Done Comments ANNUAL REVIEW OF HM ORDERS 1955 CT COLONOGRAPHY 1955 FIT-DNA (Cologuard) 1955 FIT 1955 FLEX SIG 1955 HIV SCREENING 1972 HEPATITIS C SCREENING 10/19/1975 LIPID 2002 YEARLY PREVENTIVE VISIT 06/23/2005 06/23/2004 MAMMO SCREENING 09/23/2016 09/23/2014 PAP 09/23/2017 09/23/2014 ADVANCE CARE PLANNING 09/24/2020 09/25/2015, 09/25/2015 COVID-19 Vaccine (3 - 10/07/2020 08/12/2020, 07/23/2020 Booster for Pfizer series) PHQ-2 (once per calendar 07/26/2021 09/25/2015 year) INFLUENZA VACCINE (#1) 2022 05/11/2020, 05/11/2019, 06/14/2017, Additional history exists DTAP/TDAP/TD IMMUNIZATION 04/28/2022 04/28/2012 (2 - Td or Tdap) COLONOSCOPY 09/23/2024 09/23/2014 COLORECTAL CANCER SCREENING 09/23/2024 ZOSTER IMMUNIZATION Completed 06/12/2018, 04/08/2018 HEPATITIS B IMMUNIZATION Aged Out No long er eligible based on patient 's age to complete this topic IPV IMMUNIZATION Aged Out No longer eligi ble based on patient 's age to complete this topic MENINGITIS IMMUNIZATION Aged Out No longe r eligible based on patient 's age to complete this topic Pneumococcal Vaccine: Aged Out No longer eligible Pediatrics (0 to 5 Years) based on patient's age and At-Risk Patients (6 to to co mplete this topic 64 Years) Medical Devices Implanted Type Area Cofounder Device Identifier Shelf Model / Expiration Serial / Lot Date Natrelle Inspira Cohesive Breast Implant Smooth Round Moderate Profile, Style Scm 310cc Left: ALLERGAN [id number] 06/10/2024 SCM-310 / Implanted: Qty: 1 on 06/13/2020 by Tiana Waller MD at [facility] Breast [id number] 19 / Explanted Type Area Cofounder Device Shelf Model / Identifier Expiration Date Ser ial / Lot Port Right: Explanted: Qty: 1 on 06/13/2020 by Tiana Waller MD at [facility] Chest Wall Insurance Payer Benefit Plan / Group Subscriber ID Effective Phone Addre ss Type Dates PREFERREDONE PREFERREDONE NON [id number] 2015-Pres [phone] [place] [phone] [place] [address] (Work) [phone] [place] Personal/Family Self 1955 [phone] [id number] (Home) [place] [address] Care Teams Plush Weaver Relationship Specialty Start Date End Date Linh Moeller MD PCP - General Family Practice 09/25/15 [address] [place], [place] [id number]
--- OUTSIDE RECORDS SUMMARY | 2022-05-07 08:08 | XMS_ITS | Encounter Summary ---
:1955 Author Organization [place] Address [address] [facility] [place] [address] Care Team Providers Name Role Phone Linh Moeller MD Primary Care Provider [phone] Encounter Details Date Type Department Care Team Description 06/10/2020 Orders Only [facility] Kelin Sierra MD Encounter for Clinic [facility] O NCOLOGY screening for other Laboratory [address] [facility] viral diseases [address] [address] [place], [place] [phone] ( Work) [address] [phone] Social History Tobacco Use Types Packs/Day Years Used Date Smoking Tobacco: Never Smokeless Tobacco: Never Alcohol Use Standard Drinks/Week Comments Yes 0 (1 standard drink = 0.6 oz pure alcoho l) rare Sex Assigned at Date Recorded Not on file COVID-19 Exposure Response Date Recorded In the last month, have you been in contact with No / Unsure 06/13/2020 9:02 AM PUTTYING AND CALKING SUPERVISOR someone who was confirmed or suspected to have Coronavirus / COVID-19? documented as of this encounter Plan of Treatment Not on filedocumented as of this encounter Procedures Procedure Name Priority Date/Time Associated Diagnosis Comme nts COVID-19 VIRUS Routine 06/10/2020 3:53 PM Encounter for Result s for this (CORONAVIRUS) BY PUTTYING AND CALKING SUPERVISOR screening for other proc edure are in PCR viral diseases the results section. documented in this encounter Results Asymptomatic COVID-19 Virus (Coronavirus) by PCR (06/10/2020 3:53 PM PUTTYING AND CALKING SUPERVISOR) [facility] Method Time Signature COVID-19 Nasopharyngeal 06/10/2020 [facility] Virus PCR to 4:04 PM PUTTYING AND CALKING SUPERVISOR CLINICS [facility] Source COVID-19 Not Detected 06/11/2020 [facility] Virus PCR to 8:31 PM PUTTYING AND CALKING SUPERVISOR RESEARCH AND [facility] - DIAGNOSTIC Result LABORATORY, [facility] Comment: Collection of multiple specimens from [...] was heat inactivated and amplified using the MindFusePCR SARS-CoV-2 assay ([employer].). The HDPCRTM MINESH S-CoV-2 assay is a reverse cable placer real-time polymerase chain reaction (qRT-PCR) test intended [...] (Centers for Disease Control) Testing performed by [facility] [address] [facility] [address] [facility] [address] The test performance characteristics wer e determined [...] Specimen from 06/10/2020 3:53 06/10/2020 nasopharyngeal PM PUTTYING AND CALKING SUPERVISOR 3:54 PM PUTTYING AND CALKING SUPERVISOR structure (specimen) Tiana Sierra MD LAB - MICRO GENERAL ORDERABL ES Performing Organization Address City/State/[facility] Code Phon e Number [facility] [place] [address] DIAGNOSTIC LABORATORY, [address] [facility] [address] [address] [place] documented in this encounter Visit Diagnoses Diagnosis Encounter for screening for other viral diseases documented in this encounter Care Teams Hop Farmer Relationship Specialty Start Date End Date Linh Moeller MD PCP - General Family Practice 09/25/15 [address] [place] [address] documented as of this encounter
--- OUTSIDE RECORDS SUMMARY | 2022-05-07 08:08 | XMS_ITS | Encounter Summary ---
:1955 Author Organization [place] Address [facility] [place] [address] Care Team Providers Name Role Phone Linh Moeller MD Primary Care Provider [phone] Encounter Details Date Type Department Care Team Description 06/10/2020 Travel Social History Tobacco Use Types Packs/Day Years Used Date Smoking Tobacco: Never Smokeless Tobacco: Never Alcohol Use Standard Drinks/Week Comments Yes 0 (1 standard drink = 0.6 oz pure alcoho l) rare Sex Assigned at Date Recorded Not on file COVID-19 Exposure Response Date Recorded In the last month, have you been in contact with No / Unsure 06/10/2020 3:49 PM ADJUNCT SPANISH INSTRUCTOR someone who was confirmed or suspected to have Coronavirus / COVID-19? documented as of this encounter Plan of Treatment Not on filedocumented as of this encounter Visit Diagnoses Not on filedocumented in this encounter Care Teams Printing Agent Relationship Specialty Start Date End Date Linh Moeller MD PCP - General Family Practice 09/25/15 [address] [place] [address] documented as of this encounter
--- OUTSIDE RECORDS SUMMARY | 2022-05-07 08:08 | XMS_ITS | Encounter Summary ---
:1955 Author Organization [place] Address [facility] [address] Care Team Providers Name Role Phone Uvaldo Hills MD Unavailable Reason for Visit Reason Onset Date Comments Refill Request 10/24/2004 [facility]ara Encounter Details Date Type Department Care Team Description 10/24/2004 Refill [facility] Uvaldo Hills MD Refill Request System in [facility] (climar a) QM CONSULTANT [address] [address] [place] [address] [phone] (Wo rk) Social History Tobacco Use Types Packs/Day Years Used Date Smoking Tobacco: Never Assessed Sex Assigned at Date Recorded Not on file documented as of this encounter Miscellaneous Notes Telephone Encounter - Edy Lassiter - 10/24/2004 3:20 PM CST Accepting this Rx will FAX it directly to the pharmacy. DYEING MACHINE OPERATOR documented in this encounter Plan of Treatment Not on filedocumented as of this encounter Visit Diagnoses Diagnosis Routine general medical examination at a health care facility documented in this encounter Care Teams Vehicle Check In Clerk Relationship Specialty Start Date End Date Uvaldo Hills MD PCP - Obstetrics/Gynecology 03/28/0305/[address] [address] documented as of this encounter
--- OUTSIDE RECORDS SUMMARY | 2022-05-07 08:08 | XMS_ITS | Encounter Summary ---
:1955 Author Organization [place] Address [facility] [place] [address] Care Team Providers Name Role Phone Uvaldo Hills MD Unavailable Reason for Visit Reason Comments *-*INCOMING RECORDS*-* From [facility] Encounter Details Date Type Department Care Team Description 10/01/2004 Abstract [facility] Solid Tire Tuber Machine OperatorFabian Incom ng Records : [facility] in [facility] - Medical Records [address] [address] Social History Tobacco Use Types Packs/Day Years Used Date Smoking Tobacco: Never Assessed Sex Assigned at Date Recorded Not on file documented as of this encounter Progress Notes Solid Tire Tuber Machine Operator, [facility] - 10/01/2004 10:41 AM CST *-*-*-* INCOMING RECORDS *-*-*-* Pertinent information has been abstracted out of Incoming Records. To see a complete copy of the Records please refer to the scan below. Thanks [facility], Solid Tire Tuber Machine Operator CTOR OF CATEGORY MANAGEMENT documented in this encounter Plan of Treatment Not on filedocumented as of this encounter Visit Diagnoses Not on filedocumented in this encounter Care Teams Mix Maker Relationship Specialty Start Date End Date Uvaldo Hills MD PCP - Obstetrics/Gynecology 03/28/0305/[address] [address] documented as of this encounter
--- OUTSIDE RECORDS SUMMARY | 2022-05-07 08:08 | XMS_ITS | Encounter Summary ---
:1955 Author Organization [place] Address [address] [place] [address] Care Team Providers Name Role Phone Linh Moeller MD Primary Care Provider [phone] Reason for Visit Auth/Cert Specialty Diagnoses / Procedures Referred By Contact Refer red To Contact Surgery Diagnoses Encounter for breast reconstruction following mastectomy Malignant neoplasm of upper-outer quadrant of right female breast (H) Encounter for breast reconstruction following mastectomy [Z42.1] Periop Services Malignant neoplasm of upper- outer quadrant of right female breast (H) [C50.411] [address], [address] Procedures HC REPLACE TISSUE DISTRIBUTION SUPERINTENDENT HC REMOVE W/O INSERT PROSTH TISSUE DISTRIBUTION SUPERINTENDENT HC ENLARGE BREAST WITH IMPLANT HC REMOVAL OF BREAST IMPLANT HC REMOVAL OF IMPLANT MATERIAL LEFT REMOVAL OF TISSUE DISTRIBUTION SUPERINTENDENT EXCHANGE OF SILICONE BREAST IMPLANT [address] [place] [address] Phone: Referral ID Status Reason Start Date Expiration Date Visits Requ ested Visits Authorized [id number] 1 1 Encounter Details Date Type Department Care Team Description 06/13/2020 Surgery [facility] Kelin Sierra MD LEFT REMOVAL OF TISSUE [place] [facility] [place] [facility] DISTRIBUTION SUPERINTENDENT Services [address] [facility] [address] [place] [address] [place] [address] [phone] Surgery Details Date/Time Status Location OR Service Patient Case Case Traum a Class Class Type Case? 06/13/20 Posted OR OR Plastics & Same Day 11:40 AM 20 Reconstruction Surgery Panel 1 Procedure LRB Anes Op Region Wound Class Commen ts LEFT REMOVAL OF TISSUE DISTRIBUTION SUPERINTENDENT Left General Breast I-Cl andres AND EXCHANGE FOR SILICONE BREAST IMPLANT Left General Breast I-Clean RIGHT PORT REMOVAL Right General Chest I-Clean Surgeon Surgeon Role Service Panel Katherine Sierra MD Primary Plastics & Reconstruction 1 Katherine Sánchez PA-C Assisting Steeping Press Tender Authorization 1 Special Needs PATIENT HAS COVID LINE NUMBER TO SCHEDUL E COVID TEST 06/10/20 documented in this encounter Social History Tobacco [...] with No / Unsure 06/13/2020 9:02 AM ACCOUNT DEVELOPMENT REPRESENTATIVE someone who was confirmed or suspected to have Coronavirus / COVID-19? documented as of this encounter Last Filed Vital Signs Vital Sign Reading Time Taken Comments Blood Pressure 104/56 06/13/2020 2:00 PM ACCOUNT DEVELOPMENT REPRESENTATIVE Pulse 79 06/13/2020 2:00 PM ACCOUNT DEVELOPMENT REPRESENTATIVE Temperature 35.9 ??C (96.6 ??F) 06/13/2020 2:00 PM ACCOUNT DEVELOPMENT REPRESENTATIVE Respiratory Rate 14 06/13/2020 2:00 PM ACCOUNT DEVELOPMENT REPRESENTATIVE Oxygen Saturation 100% 06/13/2020 2:00 PM ACCOUNT DEVELOPMENT REPRESENTATIVE Inhaled Oxygen Concentration - - Weight 71 kg (156 lb 9.6 oz) 06/13/2020 9:39 AM ACCOUNT DEVELOPMENT REPRESENTATIVE Height 167.6 cm (5' 6) 06/13/2020 9:39 AM ACCOUNT DEVELOPMENT REPRESENTATIVE Body Mass Index 25.28 06/13/2020 9:39 AM ACCOUNT DEVELOPMENT REPRESENTATIVE documented in this encounter Discharge Instructions Discharge InstructionsMargaret Marroquin RN - 06/13/2020 1:54 PM CST Today you were given 975 mg of Tylenol at 10:00 AM. The recommended daily maximum dose is 4000 mg. Same Day Surgery Discharge Instructions for Sedation and General Anesthesia ?? It's not unusual to feel dizzy, light-headed or faint for up to 24 hours after surgery or while taking pain medication. If you have these symptoms: sit for a few minutes before standing and have someone assist you when you get up to walk or use the bathroom. ?? You should rest and relax for the next 24 hours. We recommend you make arrangements to have an adult stay with you for at least 24 hours after your discharge. Avoid hazardous and strenuous activity. ?? DO NOT DRIVE any vehicle or operate mechanical equipment for 24 hours following the end of your surgery. Even though you may feel normal, your reactions may be affected by the medication you have received. ?? Do not drink alcoholic beverages for 24 hours following surgery. ?? Slowly progress to your regular diet as you feel able. It's not unusual to feel nauseated and/or vomit after receiving anesthesia. If you develop these symptoms, drink clear liquids (apple juice, german crista, broth, 7-up, etc. ) until you feel better. If your nausea and vomiting persists for 24 hours, please notify your surgeon. ?? All narcotic pain medications, along with inactivity and anesthesia, can cause constipation. Drinking plenty of liquids and increasing fiber intake will help. ?? For any questions of a medical nature, call your surgeon. ?? Do not make important decisions for 24 hours. ?? If you had general anesthesia, you may have a sore throat for a couple of days related to the breathing tube used during surgery. You may use Cepacol lozenges to help with this discomfort. If it worsens or if you develop a fever, contact your surgeon. ?? If you feel your pain is not well managed with the pain medications prescribed by your surgeon, please contact your surgeon's office to let them know so they can address your concerns. CoVid 19 Information We want to give you information regarding Covid. Please consult your primary care provider with any questions you might have. Patient who have symptoms (cough, fever, or shortness of breath), need to isolate for 7 days from when symptoms started OR 72 hours after fever resolves (without fever reducing medications) AND improvement of respiratory symptoms (whichever is longer). ?? Isolate yourself at home (in own room/own bathroom if possible) ?? Do Not allow any visitors ?? Do Not go to work or school ?? Do Not go to cheondoism, child care team lead centers, shopping, or other public places. ?? Do Not shake hands. ?? Avoid close and intimate contact with others (hugging, kissing). ?? Follow CDC recommendations for household cleaning of frequently touched services. After the initial 7 days, continue to isolate yourself from household members as much as possible. To continue decrease the risk of community spread and exposure, you and any members of your household should limit activities in public for 14 days after starting home isolation. You can reference the following [facility] [place]NOTE 2] link for helpful home isolation/care tips: https://www.cdc.gov/coronavirus/2019-ncov/downloads/10Things.pdf Protect Others: ?? Cover Your Mouth and Nose with a mask, disposable tissue or wash cloth to avoid spreading germs to others. ?? Wash your hands and face frequently with soap and water Call Your Primary Doctor If: Breathing difficulty develops or you become worse. For more information about COVID19 and options for caring for yourself at home, please visit the CDCwebsite at https://www.cdc.gov/coronavirus/2019-ncov/about/xhxeh-esuz-eevu.html For more options for care at [facility], please visit our website at [email or web address] UNT DEVELOPMENT REPRESENTATIVE documented in this encounter Medications at Time of Discharge Medication Sig Dispensed Refills Start Date End Date acetaminophen (TYLENOL) Take 500-1,000 mg 0 500 MG tablet by mouth every 6 hours as needed for mild pain ezetimibe (ZETIA) 10 MG Take 10 mg by mouth 0 tablet daily montelukast (SINGULAIR) 10 Take 1 tablet (10 90 tablet 1 MG tabletIndications: mg) by mouth At Status post breast Bedtime reconstruction Multiple Vitamins-Minerals Take by mouth daily 0 (MULTIVITAMIN ADULT PO) oxyCODONE-acetaminophen Take 1-2 tablets by 30 tablet 0 (PERCOCET) 5-325 MG mouth every 4 hours tabletIndications: Status as needed for post breast reconstruction moderate to severe pain senna-docusate Take 1-2 tablets by 30 tablet 0 06/13/2020 (SENOKOT-S/PERICOLACE) mouth 2 times daily 8.6-50 MG tabletIndications: Status post breast reconstruction SERTRALINE HCL PO Take 100 mg by 0 mouth daily SIMVASTATIN PO Take 80 mg by mouth 0 At Bedtime sulfamethoxazole-trimethop Take 1 tablet by 14 tablet 0 06/20/2020 rim (BACTRIM DS) 800-160 mouth 2 times daily MG tabletIndications: for 7 days Status post breast reconstruction documented as of this encounter Nursing Notes Lela Bowie RN - 06/13/2020 3:17 PM CST Discharge instructions reviewed via phone with . Printed form sent with patient as well as 4 prescriptions. UNT DEVELOPMENT REPRESENTATIVE Margaret Marroquin RN - 06/13/2020 2:19 PM CST PNDS met, po per I&O sheet. Pt dressed, up in recliner and transported to Phase 2. UNT DEVELOPMENT REPRESENTATIVE documented in this encounter Miscellaneous Notes Op Note - Katherine Sierra MD - 06/13/2020 1:46 PM CST Procedure Date: 06/13/2020 PREOPERATIVE DIAGNOSES: 1. Personal history of right breast cancer. 2. Status post bilateral mastectomies, direct implant breast reconstruction on the right side and a tissue manager billing breast reconstruction on the left side in planning for radiation therapy. 3. Malfunctioning left tissue manager billing. 4. Right chest Port-A-Cath. POSTOPERATIVE DIAGNOSES: 1. Personal history of right breast cancer. 2. Status post bilateral mastectomies, direct implant breast reconstruction on the right side and a tissue manager billing breast reconstruction on the left side in planning for radiation therapy. 3. Malfunctioning left tissue manager billing. 4. Right chest Port-A-Cath. PROCEDURES PERFORMED: 1. Left prepectoral tissue manager billing removal and exchange for silicone breast implant. 2. Removal of right chest Port-A-Cath. DRAINAGE TYPE: None. YOUTH OFFICER: Anjali Sánchez PA-C. Gonzalo Alba PA-C was present and scrubbed for the entire procedureand assisted with dissection, retraction and closure. There were no other qualified trainees or other assistants available and the presence of Anjali Sánchez PA-C was necessary due to inability to retract and dissect without an religious assistant. INDICATIONS FOR PROCEDURE: The patient is a 64-year-old female with a history of right breast cancer. She underwent bilateral skin-sparing mastectomies and prepectoral breast reconstruction with silicone breast implant on the right side given the need for radiation therapy post-mastectomy and a tissueexpander on the left side. She completed her radiation therapy and unfortunately had malfunction of her left tissue manager billing. We are bringing her today to remove this left tissue manager billing and exchange it for the permanent silicone breast implant. The patient also requested removal of her right chest Port-A-Cath. A written witnessed informed consent was obtained preoperatively. DESCRIPTION OF PROCEDURE: The patient was identified and marked in the preoperative holding area. She was taken to the operating room and placed supine on the operating table. Sequential compression devices were applied to the lower extremities. After successful general anesthesia and endotracheal intu bation, the patient was prepared and draped in the usual sterile fashion. An intentional pause was then performed confirming the patient identity, the procedure to be performed, the laterality, the patient's allergies and the administration of the necessary antibiotics by Anesthesia. I initially turned my attention to the right chest, where the existing scar was incised through the dermis with a #10 blade. Following this, the subcutaneous tissues were dissected until the Port-A-Cath was visualized. The 2 Prolene sutures were cut and the Port-A-Cath was easily removed without difficulty. The Port-A-Cath was removed with the patient under a short Valsalva. Following this, pressure was held at the site for 5 minutes and we proceeded to closure of the capsular defect with [id number] 3-0 Monocryl and closure of the incision with deep dermal 3-0 Monocryl followed by a subcuticular 4-0 Monocryl. Of note, the capsule around the port site was thicker than average. I then turned my attention to the left breast, where the mastectomy scar was incised through the dermis with a #10 blade. The subcutaneous tissues were dissected with the electrocautery until the AlloDerm capsule was encountered. This was incised. Following this, the tissue manager billing was removed. It was found to be completely empty with likely perforation. The tissue manager billing was removed and it was noted that there were areas of double capsule. We performed pretty extensive capsulotomies circumferentially as well as some cross hatching of the capsule, especially laterally, where the capsule was very thick in addition to the AlloDerm. There were some areas where capsule had formed underneath the AlloDerm despite incorporation of the AlloDerm. Once the capsulotomy was completed, careful hemostasis was obtained. We then tried a Natrelle silicone gel sizer moderate profile of a volume of 310 mL to match the contralateral side. After several adjustments, this implant was found to be a good fit. The prepectoral pocketwas then irrigated with half-strength Betadine. Hemostasis was once again confirmed. The skin was then prepared with Betadine and protected with blue towels. I then changed my gloves and inserted a Natrelle Inspira cohesive breast implant, style SCM-310 with a serial number of [id number]. Following this, the AlloDerm was closed onto itself with a running 2-0 Vicryl, and the skin was then closed in layers with deep dermal 3-0 Monocryl followed by a subcuticular 4-0 Monocryl after having released the edges of the incision with a #15 blade to allow for eversion of the skin. The skin on the left side showed some breast lymphedema and some thickening, which could have been caused by the malfunction of the tissue manager billing causing some skin folds. The left breast incision was covered with half-inch Steri-Strips and Exofin. The right port site was also covered with half-inch Steri-Strips and Exofin. The right breast was then covered with Xeroform due to post-radiation desquamation. Two ABD pads were placed on the breast and the patient was placed in a surgical bra. At the end of the procedure, all sponge, needle and instrument counts were correct. The patient was awakened and sent to the recovery room in satisfactory condition. I was present for the entire case. KATHERINE SIERRA MD MT: AMAYA Name: REHANA MONROE MRN: [id number] Account: [id number] : 1955 Procedure Date: 06/13/2020 Document: [id number] UNT DEVELOPMENT REPRESENTATIVE documented in this encounter Plan of Treatment Not on filedocumented as of this encounter Procedures Procedure Name Priority Date/Time Associated Diagnosis Comme nts SURGICAL PATHOLOGY Routine 06/13/2020 12:06 Resul ts for this EXAM PM ACCOUNT DEVELOPMENT REPRESENTATIVE procedure are i n the results section. REMOVAL, VASCULAR 06/13/2020 11:14 Encounter for breas t ACCESS PORT AM ACCOUNT DEVELOPMENT REPRESENTATIVE reconstruction following mastec gogo Malignant neoplasm of upper-outer quadrant of right female breast (H) Special Needs PATIENT HAS COVID LINE NUMBE R TO SCHEDULE COVID TEST 06/10/20 REPLACEMENT, IMPLANT, 06/13/2020 11:14 AM ACCOUNT DEVELOPMENT REPRESENTATIVE Encounte r for breast BREAST reconstruction following mastectomy Malignant neoplasm of upper- outer quadrant of right female kelsea ast (H) Special Needs PATIENT HAS COVID LINE NUMBE R TO SCHEDULE COVID TEST 06/10/20 REMOVAL, TISSUE 06/13/2020 11:14 AM ACCOUNT DEVELOPMENT REPRESENTATIVE Encounter for breast DISTRIBUTION SUPERINTENDENT, BREAST reconstruction following mastectomy Malignant neoplasm of upper- outer quadrant of right female kelsea ast (H) Special Needs PATIENT HAS COVID LINE NUMBE R TO SCHEDULE COVID TEST 06/10/20 LAB RESULT - HIM SCAN 05/23/2020 12:00 AM CDT documented in this encounter Results Surgical pathology exam (06/13/2020 12:06 PM ACCOUNT DEVELOPMENT REPRESENTATIVE) Component Value Ref Test Analysis Performed At [facility] [employer] Method Time Signature Copath Report Patient Name: REHANA MONROE MR#: [id number] Specimen #: [id number] Collected: 06/13/2020 Received: 06/13/2020 Reported: 06/13/2020 20:40 Ordering Phy(s): KATHERINE SIERRA For improved result formatting, select 'View Enhanced Report Format' under Linked Documents section. SPECIMEN(S): A: Gross only, port B: Gross only, left breast tissue manager billing FINAL DIAGNOSIS: A. ??Port. ??(gross only) B. ??Breast tissue manager billing. ??(gross only) Electronically signed out by: Jacqueline Coyne M.D. CLINICAL HISTORY: 64 year old femnale., GROSS: A. The specimen is received fresh with the proper patient id entification, labeled port. The specimen consists of a 2.7 x 2.6 x 2.1 cm purple plastic portion of m edical hardware consistent with a port. Inscribed on the surfaces BARD, 0090. Attached to the port is a 30.1 x 0.2 cm portion of plastic tubing. No sections are submitted. The specimen is for gross exam only. B. The specimen is received fresh with the proper patient id entification, labeled left breast tissue manager billing. The specimen consists of a 14.1 x 14.1 x 2.1 cm o void portion of plastic medical hardware consistent with a breast manager billing. Inscribed on the surfaces SARAH, cheri SFV, 12 cm, 400 cc, LOT [id number]. No sections are submitted. The specimen is for andreia ss exam only. (Dictated by: Colin Nash 06/13/2020 04:41 PM) MICROSCOPIC: Microscopic examination is not performed. The technical component of this testing was completed at the [facility], with the professional compo nent performed at the [facility], [address] [place] [address] ??[phone] ([phone]) CPT Codes: A: 37235-TV B: 53596-MF COLLECTION SITE: Client: [facility] Location: SHOR (S) Specimen (Source) Anatomical Collection Method Collection Time Re ceived Time Location / / Volume Laterality Specimen from TOPOGRAPHY UNKNOWN 06/13/2020 12:06 unspecified body / Unknown PM ACCOUNT DEVELOPMENT REPRESENTATIVE site (specimen) Comment: GROSS ONLY Specimen from unspecified body LEFT BREAST STRUCTURE / 06/13/2020 12:38 PM ACCOUNT DEVELOPMENT REPRESENTATIVE site (specimen) Unknown Comment: GROSS ONLY Katherine Sierra MD LAB - [facility] AP Performing Organization Address City/State/ZIP Code Phon e Number COPATH LAB RESULT - HIM SCAN (05/23/2020 12:00 AM CDT) Specimen (Source) Anatomical Location Collection Method / Collectio n Time Received Time / Laterality Volume 05/23/2020 Narrative This result has an attachment that is no t available. Provider Outside NON-BEAKER LAB TESTING documented in this encounter Visit Diagnoses Diagnosis Status post breast reconstruction - Prim taryn Breast replaced by other means Encounter for breast reconstruction foll owing mastectomy Malignant neoplasm of upper-outer quadra nt of right female breast (H) Malignant neoplasm of upper-outer quadra nt of female breast documented in this encounter Administered Medications Inactive Administered Medications - up to 3 most recent administrations Medication Order MAR Action Action Date Dose Rate Site acetaminophen (TYLENOL) tablet Given 06/13/2020 9:50 AM ACCOUNT DEVELOPMENT REPRESENTATIVE 1,00 0 mg 1,000 mg 1,000 mg, Oral, ONCE, On Tova 06/13/20 at 0930, For 1 dose, Maximum acetaminophen dose from all sources = 75 mg/kg/day not to exceed 4 gram, Pre-procedure acetaminophen (TYLENOL) tablet 650 mg 650 mg, Oral, ONCE PRN, mild pain, to mo derate pain, Starting on Tova 06/13/20 at 1334, One time prior to discharge. Maxim um acetaminophen dose from all sources = 75 mg/kg/day not to exceed 4 grams/day., Post-procedure gabapentin (NEURONTIN) tablet 600 mg Given 06/13/2020 9:51 AM ACCOUNT DEVELOPMENT REPRESENTATIVE 600 mg 600 mg, Oral, ONCE, On Tova 06/13/20 at 0930, For 1 dose, Pre-procedure oxyCODONE-acetaminophen (PERCOCET) 5-325 MG per tablet 1 tablet 1 tablet, Oral, ONCE PRN, other, pain co ntrol or improvement in physical function., Starting on Tova 06/13/20 at 1334, For 1 dose, Notify dot rasmussen to assess for uncontrolled pain or analgesic side effe cts. Maximum acetaminophen dose from all sources= 75 mg/kg/day not to exceed 4 grams, Post-proc edure povidone-iodine 10% (250 Given 06/13/2020 12:01 500 ml given Operative mL) (BTEADINE) + 250 mL PM ACCOUNT DEVELOPMENT REPRESENTATIVE S ite/Surgical Site saline irrigation PRN, Starting on Tova 06/13/20 at 1201, Intra-procedure sodium chloride 0.9% Given 06/13/2020 12:01 PM 1,000 mLs Operative (bottle) irrigation ACCOUNT DEVELOPMENT REPRESENTATIVE Site/Surgical S ite PRN, Starting on Tova 06/13/20 at 1201, Intra-procedure documented in this encounter Active and Recently Administered Medications Times are shown in ACCOUNT DEVELOPMENT REPRESENTATIVE. Scheduled Medication Order 06/11/2020 06/12/2020 06/13/2020 acetaminophen (TYLENOL) tablet 1,000 mg (COMPLETED) 0950 (Given - Provider: Jeannine Khan RN) 1,000 mg, Oral, ONCE, Tova 06/13/20 at 09 30, For 1 dose, Maximum acetaminophen dose from all sources = 75 mg/kg/day not to exceed 4 gram, Pre-procedure ceFAZolin (ANCEF) intermittent infusion 2 g in 100 mL dextrose PRE-MIX (COMPLETED) 1155 (Given - Provid er: Katty Alex APRN DEANNA) Routine, 2 g, Intravenous, PRE-OP/PRE-LA OCEDURE, Starting Tova 06/13/20 at 0913, For 1 dose, Give first dose within 1 hour PRIOR to incision. If patient weight is greater than or equal to 120 kg increase dose to 3 g., Indications: Perioperative Pharmacoprophylaxis, P re-procedure gabapentin (NEURONTIN) tablet 600 mg (COMPLETED) 09 (Given - Provider: Jeannine Khan RN) 600 mg, Oral, ONCE, Tova 06/13/20 at 0930, For 1 dose, Pre-proced ure PRN Medication Order 06/11/2020 06/12/2020 06/13/2020 acetaminophen (TYLENOL) tablet 650 mg 650 mg, Oral, ONCE PRN, mild pain, to mo derate pain, Starting Tova 06/13/20 at 1334, One time prior to discharge. Maximum acetaminophen dose from all sources = 75 mg/kg/day not to exceed 4 grams/day., Post-procedure oxyCODONE-acetaminophen (PERCOCET) 5-325 MG per tablet 1 tablet 1 tablet, Oral, ONCE PRN, other, pain co ntrol or improvement in physical function., Starting Tova 06/13/20 at 1334, For 1 dose, Notify provider to assess for uncontrolled pain or analgesic side effects. Maximum acetaminophen dose from all sour quang= 75 mg/kg/day not to exceed 4 grams, Post-procedure povidone-iodine 10% (250 mL) (BTEADINE) + 250 mL saline irrigati on (CANCELED) 1201 (Given - Provider: Katherine Sierra MD) PRN, Starting Tova 06/13/20 at 1201, Intra-procedure sodium chloride 0.9% (bottle) irrigation (CANCELED) 1201 (Given - Provider: Katherine Sierra MD) PRN, Starting Tova 06/13/20 at 1201, Intra-procedure documented in this encounter Care Teams Side Sawyer Relationship Specialty Start Date End Date Linh Moeller MD PCP - General [facility] Practice 09/25/15 [address] [place] [address] documented as of this encounter
--- OUTSIDE RECORDS SUMMARY | 2022-05-07 08:08 | XMS_ITS | Encounter Summary ---
:1955 Author Organization [place] Address [facility] access hospital[facility] [place] [address] Care Team Providers Name Role Phone Uvaldo Hills MD Unavailable Reason for Visit Reason Onset Date Comments Refill Request 01/05/2005 [facility] patch Encounter Details Date Type Department Care Team Description 01/05/2005 Refill [facility] Uvaldo Hills MD Refill Request ([facility]) PATIENT FINANCIAL COUNSELOR [address] [address] [place] [address] [phone] (Wo rk) Social History Tobacco Use Types Packs/Day Years Used Date Smoking Tobacco: Never Assessed Sex Assigned at Date Recorded Not on file documented as of this encounter Miscellaneous Notes Telephone Encounter - Joan Oglesby - 01/05/2005 3:05 PM CDT Accepting this Rx will FAX it directly to the pharmacy. documented in this encounter Plan of Treatment Not on filedocumented as of this encounter Visit Diagnoses Not on filedocumented in this encounter Care Teams Dielectric Testing Machine Operator Relationship Specialty Start Date End Date Uvaldo Hills MD PCP - Obstetrics/Gynecology 03/28/0305/[address] [address] documented as of this encounter
--- OUTSIDE RECORDS SUMMARY | 2022-05-07 08:08 | XMS_ITS | Encounter Summary ---
:1955 Author Organization [facility] Address [address] [place] [place] [address] Care Team Providers Name Role Phone Linh Moeller MD Primary Care Provider Encounter Details Date Type Department Care Team Description 11/07/2020 Medical Correspondence [facility], EYE [facility]ASS Health Info Mgmt Non-Provider PRESCRIPTIO N ORDER Srvcs [facility] EYE [address] [place] [address] Social History Tobacco Use Types Packs/Day Years [...] on filedocumented in this encounter Care Teams Table Keeper Relationship Specialty Start Date End Date Linh Moeller MD PCP - General Family Practice 09/25/15 [address] [place] [address] documented as of this encounter
--- OUTSIDE RECORDS SUMMARY | 2022-05-07 08:08 | XMS_ITS | Encounter Summary ---
:1955 Author Organization [facility] Address [facility] [place] [address] Care Team Providers Name Role Phone Uvaldo Hills MD Unavailable Reason for Visit Reason Onset Date Comments Refill Request 08/11/2004 Encounter Details Date Type Department Care Team Description 08/11/2004 Refill [facility] Uvaldo Hills MD Refill Request in [place] STATISTICAL GENETICIST [address] [address] [place] [address] [phone] (Wo rk) Social History Tobacco Use Types Packs/Day Years Used Date Smoking Tobacco: Never Assessed Sex Assigned at Date Recorded Not on file documented as of this encounter Miscellaneous Notes Telephone Encounter - 08/11/2004 12:06 PM AUTOMATIC CLIPPER AND STRIPPER >> MICAH BURNS [facility] Aug 11, 2004 12:09 PM accepting will fax rx directly to pharmacy. documented in this encounter Plan of Treatment Not on filedocumented as of this encounter Visit Diagnoses Diagnosis Routine general medical examination at a health care facility documented in this encounter Care Teams Medical Coordinator Pesticide Use Relationship Specialty Start Date End Date Uvaldo Hills MD PCP - Obstetrics/Gynecology 03/28/0305/[address] [address] documented as of this encounter
--- OUTSIDE RECORDS SUMMARY | 2022-05-07 08:08 | XMS_ITS | Encounter Summary ---
:1955 Author Organization [facility] Address [facility] [place] [address] Care Team Providers Name Role Phone Linh Moeller MD Primary Care Provider Encounter Details Date Type Department Care Team Description 06/13/2020 Travel Social History Tobacco Use Types Packs/Day Years Used Date Smoking Tobacco: Never Smokeless Tobacco: Never Alcohol Use Standard Drinks/Week Comments Yes 0 (1 standard drink = 0.6 oz pure alcoho l) rare Sex Assigned at Date Recorded Not on file COVID-19 Exposure Response Date Recorded In the last month, have you been in contact with No / Unsure 06/13/2020 9:02 AM BUSINESS INTELLIGENCE CONSULTANT someone who was confirmed or suspected to have Coronavirus / COVID-19? documented as of this encounter Plan of Treatment Not on filedocumented as of this encounter Visit Diagnoses Not on filedocumented in this encounter Care Teams Human Resources Benefits Coordinator Relationship Specialty Start Date End Date Linh Moeller MD PCP - General Family Practice 09/25/15 [address] [place] [address] documented as of this encounter
--- OUTSIDE RECORDS SUMMARY | 2022-05-07 08:08 | XMS_ITS | Encounter Summary ---
:1955 Author Organization [facility] Address [address] [place] [address] Care Team Providers Name Role Phone Linh Moeller MD Primary Care Provider [phone] Reason for Visit Auth/Cert Specialty Diagnoses / Procedures Referred By Contact Refer red To Contact Surgery Diagnoses Encounter for breast reconstruction following mastectomy Malignant neoplasm of upper-outer quadrant of right female breast (H) Encounter for breast reconstruction following mastectomy [Z42.1] Periop Services Malignant neoplasm of upper- outer quadrant of right female breast (H) [C50.411] [address], [address] Procedures HC REPLACE TISSUE ELECTRICAL LINE SPLICER HC REMOVE W/O INSERT PROSTH TISSUE ELECTRICAL LINE SPLICER HC ENLARGE BREAST WITH IMPLANT HC REMOVAL OF BREAST IMPLANT HC REMOVAL OF IMPLANT MATERIAL LEFT REMOVAL OF TISSUE ELECTRICAL LINE SPLICER EXCHANGE OF SILICONE BREAST IMPLANT LL2 [place] [address] Phone: Referral ID Status Reason Start Date Expiration Date Visits Requ ested Visits Authorized [id number] 1 1 Encounter Details Date Type Department Care Team Description 06/13/2020 [facility] Katherine Sierra Statu s post breast Encounter Niharika Phase II reconstruction [address] [facility] (Primary Dx) [facility] [facility] [address] [facility] [phone] [place] [address] [address] [id number] Social History Tobacco Use Types Packs/Day Years Used Date Smoking Tobacco: Never Smokeless Tobacco: Never Alcohol Use Standard Drinks/Week Comments Yes 0 (1 standard drink = 0.6 oz pure alcoho l) rare Sex Assigned at Date Recorded Not on file COVID-19 Exposure Response Date Recorded In the last month, have you been in contact with No / Unsure 06/13/2020 9:02 AM AREA CAPTAIN someone who was confirmed or suspected to have Coronavirus / COVID-19? documented as of this encounter Last Filed Vital Signs Vital Sign Reading Time Taken Comments Blood Pressure 108/58 06/13/2020 3:15 PM AREA CAPTAIN Pulse 79 06/13/2020 2:00 PM AREA CAPTAIN Temperature 35.9 ??C (96.6 ??F) 06/13/2020 2:00 PM AREA CAPTAIN Respiratory Rate 14 06/13/2020 3:15 PM AREA CAPTAIN Oxygen Saturation 99% 06/13/2020 3:15 PM AREA CAPTAIN Inhaled Oxygen Concentration - - Weight 71 kg (156 lb 9.6 oz) 06/13/2020 9:39 AM AREA CAPTAIN Height 167.6 cm (5' 6) 06/13/2020 9:39 AM AREA CAPTAIN Body Mass Index 25.28 06/13/2020 9:39 AM AREA CAPTAIN documented in this encounter Discharge Instructions Discharge [...] or school ?? Do Not go to restorationism, child welfare counselor centers, shopping, or other public places. ?? [...] home isolation. You can reference the following CDC link for helpful home isolation/care tips: https://www.cdc.gov/coronavirus/2019-ncov/downloads/10Things.pdf [...] at home, please visit the CDCwebsite at https://www.cdc.gov/coronavirus/2019-ncov/about/azgqa-kchl-uciu.html For more options for care at [facility], please visit our website at [email or web address] CAPTAIN documented in this encounter Medications at Time [...] with patient as well as 4 prescriptions. CAPTAIN Margaret Marroquin RN - 06/13/2020 2:19 PM CST PNDS met, po per I&O sheet. Pt dressed, up in recliner and transported to Phase 2. CAPTAIN documented in this encounter Miscellaneous Notes Op Note - Katherine Sierra MD - 06/13/2020 1:46 PM CST Procedure Date: 06/13/2020 PREOPERATIVE DIAGNOSES: 1. Personal history of right breast cancer. 2. Status post bilateral mastectomies, direct implant breast reconstruction on the right side and a tissue value engineer breast reconstruction on the left side in planning for radiation therapy. 3. Malfunctioning left tissue value engineer. 4. Right chest Port-A-Cath. POSTOPERATIVE DIAGNOSES: 1. Personal history of right breast cancer. 2. Status post bilateral mastectomies, direct implant breast reconstruction on the right side and a tissue value engineer breast reconstruction on the left side in planning for radiation therapy. 3. Malfunctioning left tissue value engineer. 4. Right chest Port-A-Cath. PROCEDURES PERFORMED: 1. Left prepectoral tissue value engineer removal and exchange for silicone breast implant. 2. Removal of right chest Port-A-Cath. DRAINAGE TYPE: None. CREDIT REPORTING CLERK: Anjali Sánchez PA-C. Gonzalo Alba PA-C was present and scrubbed for the entire procedureand assisted with dissection, retraction and closure. There were no other qualified trainees or other assistants available and the presence of Anjali Sánchez PA-C was necessary due to inability to retract and dissect without an assistant cross country coach. INDICATIONS FOR PROCEDURE: The patient is a 64-year-old female with a history of right breast cancer. She underwent bilateral skin-sparing mastectomies and prepectoral breast reconstruction with silicone breast implant on the right side given the need for radiation therapy post-mastectomy and a tissueexpander on the left side. She completed her radiation therapy and unfortunately had malfunction of her left tissue value engineer. We are bringing her today to remove this left tissue value engineer and exchange it for the permanent silicone [...] to closure of the capsular defect with phehou-nu-efbzy 3-0 Monocryl and closure of the incision [...] This was incised. Following this, the tissue value engineer was removed. It was found to be completely empty with likely perforation. The tissue value engineer was removed and it was noted that [...] style SCM-310 with a serial number of [id number]. Following this, the AlloDerm was closed onto [...] caused by the malfunction of the tissue value engineer causing some skin folds. The left breast [...] SIERRA MD MT: AMAYA Name: REHANA MONROE Account: [id number] : 1955 Procedure Date: 06/13/2020 Document: [id number] CAPTAIN documented in this encounter Plan of Treatment Not on filedocumented as of this encounter Procedures Procedure Name Priority Date/Time Associated Diagnosis Comme nts SURGICAL PATHOLOGY Routine 06/13/2020 12:06 Resul ts for this EXAM PM AREA CAPTAIN procedure are i n the results section. REMOVAL, VASCULAR 06/13/2020 11:14 Encounter for breas t ACCESS PORT AM AREA CAPTAIN reconstruction following mastec gogo Malignant neoplasm of upper-outer quadrant of right female breast (H) Special Needs PATIENT HAS COVID LINE NUMBE R TO SCHEDULE COVID TEST 06/10/20 REPLACEMENT, IMPLANT, 06/13/2020 11:14 AM AREA CAPTAIN Encounte r for breast BREAST reconstruction following mastectomy Malignant neoplasm of upper- outer quadrant of right female kelsea ast (H) Special Needs PATIENT HAS COVID LINE NUMBE R TO SCHEDULE COVID TEST 06/10/20 REMOVAL, TISSUE 06/13/2020 11:14 AM AREA CAPTAIN Encounter for breast ELECTRICAL LINE SPLICER, BREAST reconstruction following mastectomy Malignant neoplasm of upper- outer quadrant of right female kelsea ast (H) Special Needs PATIENT HAS COVID LINE NUMBE R TO SCHEDULE COVID TEST 06/10/20 LAB RESULT - HIM SCAN 05/23/2020 12:00 AM CDT documented in this encounter Results Surgical pathology exam (06/13/2020 12:06 PM AREA CAPTAIN) Component Value Ref Test Analysis Performed At [facility] Range Method Time Signature Copath Report Patient Name: REHANA MONROE MR#: [id number] Specimen #: [id number] Collected: 06/13/2020 Received: 06/13/2020 Reported: 06/13/2020 20:40 Ordering Phy(s): KATHERINE SIERRA For improved result formatting, select 'View Enhanced Report Format' under Linked Documents section. SPECIMEN(S): A: Gross only, port B: Gross only, left breast tissue value engineer FINAL DIAGNOSIS: A. ??Port. ??(gross only) B. ??Breast tissue value engineer. ??(gross only) Electronically signed out by: Jacqueline [...] patient id entification, labeled left breast tissue value engineer. The specimen consists of a 14.1 x 14.1 x 2.1 cm o void portion of plastic medical hardware consistent with a breast value engineer. Inscribed on the surfaces cheri SMITH SFV, 12 cm, 400 cc, LOT [id number]. No sections are submitted. The specimen is for andreia ss exam only. (Dictated by: Colin Nash 06/13/2020 04:41 PM) MICROSCOPIC: Microscopic examination is not performed. The technical component of this testing was completed at the [facility], with the professional compo nent performed at the [facility], [facility] [place], [place] ??[address] ([phone]) CPT Codes: A: 13331-OR B: 95562-JJ COLLECTION SITE: Client: [facility] Location: [facility] (S) Specimen (Source) Anatomical Collection Method Collection Time Re ceived Time Location / / Volume Laterality Specimen from TOPOGRAPHY UNKNOWN 06/13/2020 12:06 unspecified body / Unknown PM AREA CAPTAIN site (specimen) Comment: GROSS ONLY Specimen from unspecified body LEFT BREAST STRUCTURE / 06/13/2020 12:38 PM AREA CAPTAIN site (specimen) Unknown Comment: GROSS ONLY Katherine Sierra MD [facility] Performing Organization Address City/State/ZIP Code Phon e Number [facility] LAB RESULT - HIM SCAN (05/23/2020 12:00 AM CDT) Specimen (Source) Anatomical Location Collection Method / Collectio n Time Received Time / Laterality Volume 05/23/2020 Narrative This result has an attachment that is no t available. Provider Outside [facility] LAB TESTING documented in this encounter Visit Diagnoses Diagnosis Status post breast reconstruction - Prim taryn Breast replaced by other means documented in this encounter Administered Medications Inactive Administered Medications - up to 3 most recent administrations Medication Order MAR Action Action Date Dose Rate Site acetaminophen (TYLENOL) tablet Given 06/13/2020 9:50 AM AREA CAPTAIN 1,00 0 mg 1,000 mg 1,000 mg, [...] tablet 600 mg Given 06/13/2020 9:51 AM AREA CAPTAIN 600 mg 600 mg, Oral, ONCE, On Tova 06/13/20 at 0930, For 1 dose, Pre-procedure oxyCODONE-acetaminophen (PERCOCET) 5-325 MG per tablet 1 tablet 1 tablet, Oral, ONCE PRN, other, pain co ntrol or improvement in physical function., Starting on Tova 06/13/20 at 1334, For 1 dose, Notify p valery to assess for uncontrolled pain or analgesic side effe cts. Maximum acetaminophen dose from all sources= 75 mg/kg/day not to exceed 4 grams, Post-proc edure documented in this encounter Active and Recently Administered Medications Times are shown in AREA CAPTAIN. Scheduled Medication Order 06/11/2020 06/12/2020 06/13/2020 acetaminophen (TYLENOL) tablet 1,000 mg (COMPLETED) 0950 (Given - Provider: Jeannine Khan, RAIMUNDO) 1,000 mg, Oral, ONCE, Tova 06/13/20 at 09 30, For 1 dose, Maximum acetaminophen dose from all sources = 75 mg/kg/day not to exceed 4 gram, Pre-procedure ceFAZolin (ANCEF) intermittent infusion 2 g in 100 mL dextrose PRE-MIX (COMPLETED) 1155 (Given - Provid er: Katty Alex, ALLEN HUERTA) Routine, 2 g, Intravenous, PRE-OP/PRE-MN OCEDURE, Starting Tova 06/13/20 at 0913, For [...] Intra-procedure documented in this encounter Care Teams Pier Hand Helper Relationship Specialty Start Date End Date Linh Moeller MD PCP - General Family Practice 09/25/15 [address] [place] [address] documented as of this encounter
--- OUTSIDE RECORDS SUMMARY | 2022-05-07 08:09 | XMS_ITS | Clinical Summary ---
:1955 Author Organization [facility] [place] [address] Care Team Providers Name Role Phone Shilpi Nielson MD Primary Care Provider Allergies No known active allergies Medications Medication Sig Dispensed Refills Start Date End Date Status LIPITOR 80 MG TAB take 1 tablet (80mg) 0 Active by oral route once daily CLIMARA 0.1 MG/24 HR apply 1 patch by 0 11/28/2007 Active TRANSDERM PATCH transdermal route once weekly cyclically, 3 weeks on and 1 week off ATIVAN 0.5 MG take 1 tablets (1 50 1 11/28/2007 Active TABIndications: mg) by oral route 3 Adjustment disorder times per day as with depressed mood needed, and may take 2 tabs at night. Active Problems Not on file Family History Medical History Relation Name Comments Cancer-breast Maternal Grandmother Cancer-breast Other cousin Cancer-breast Sister GI Disease Sister peptic ulcer dis ease Cancer-ovarian No Family History Relation Name Status Comments Maternal Grandmother Other Sister Social History Tobacco Use Types Packs/Day Years Used Date Never Smoker Alcohol Use Standard Drinks/Week Comments Yes 0 (1 standard drink = 0.6 oz pure alcoho l) rarely drinks alcohol Sex Assigned at Date Recorded Not on file Obstetrics History Last Filed Vital Signs Vital Sign Reading Time Taken Comments Blood Pressure 103/67 11/28/2007 4:37 PM CDT Pulse 77 11/28/2007 4:37 PM CDT Temperature - - Respiratory Rate - - Oxygen Saturation - - Inhaled Oxygen Concentration - - Weight 60.9 kg (134 lb 3.2 oz) 11/28/2007 4:37 PM CDT Height - - Body Mass Index - - Plan of Treatment Health Maintenance Due Date Last Done Comments COVID-19 vaccine series (#1) 04/20/1956 Tdap 1968 Depression screening for age 12+ 1969 BMI (ht and wt on same day) for age 18+ 10/19/1975 Hepatitis C screening for age 18-79 10/19/1975 Tetanus booster 1977 Pap test for age 21-65 1978 Colonoscopy through age 75 2002 Lipids for age 45-75 2002 Mammogram for age 45-75 2002 Zoster (shingles) series for age 50+ (1 of 2) 10/19/2007 Influenza for age 50-64 03/26/2022 Results Not on filefrom Last 3 Months Insurance Payer Benefit Plan / Subscriber ID Effective Dates Phone Addre ss Type Group PREFERRED ONE PREFERRED ONE [id number] 2019-Present [address] [place] [address] Guarantor Name Account Type Relation to Date of Phone Billing Patient Address [place] Personal/Family Self 1955 [phone] [id number] (Home) [place] [address] Care Teams Tool And Die Supervisor Relationship Specialty Start Date End Date Shilpi Nielson MD PCP - General Internal Medicine 09/11/19[address] [place] [address]
--- NOTE | 2022-05-07 10:16 | W.ANESCHARGE ---
Anesthesia Charges Start Date/Time Anesthesia Start Date: 05/07/22 Anesthesia Start Time: 08:50 Stop Date/Time Anesthesia Stop Date: 05/07/22 Anesthesia Stop Time: 09:25 Summary Emergency: No
--- NOTE | 2022-05-07 11:43 | W.ANESCHARGE ---
Anesthesia Charges Start Date/Time Anesthesia Start Date: 05/07/22 Anesthesia Start Time: 08:50 Stop Date/Time Anesthesia Stop Date: 05/07/22 Anesthesia Stop Time: 09:25 Summary Emergency: No
== END 2022-05-07 07:50 | disposition home or self-care (01) ==
PROVIDERS: PCP Internal Medicine; Visit Provider Surgery
DX: K63.5 Polyp of colon (principal); K64.8 Other hemorrhoids; K63.89 Other specified diseases of intestine; K64.4 Residual hemorrhoidal skin tags; Z86.010 Personal history of colon polyps
CPT/HCPCS: 00811; 45380; 45385; 88305; J2704

== ENCOUNTER 2022-05-28 09:46 | Outpatient (RCR) | payer OTHER, SELFPAY | END 2022-11-24 23:59 | disposition home or self-care (01) | LOC: CCIC 09:46 | PROVIDERS: PCP Internal Medicine; Visit Provider Nurse Practitioner Family | DX: C50.919 Malignant neoplasm of unspecified site of unspecified female breast (principal); Z17.0 Estrogen receptor positive status [ER+] | CPT/HCPCS: 99212; 99214 ==

== ENCOUNTER 2023-02-04 08:27 | Outpatient (CLI) | payer MEDICARE, BC, SELFPAY ==
[2023-02-04 08:57] LABS: Creatinine* 0.7 mg/dL (0.5-1.5); Estimated Glomerular Filt Rate 96 ml/min
--- NOTE | 2023-02-04 09:00 | CRLHL7_ITS ---
For Patients: As a result of the Cures Act, medical imaging exams and procedure reports are released immediately into your electronic medical record. You may view this report before your referring provider. If you have questions, please contact your health care provider. Indication: PERSONAL HX OF MALIGNANT NEOPLASM COUGH/CHANGE R/O RECURRENT DISEASE Technique: Post contrast CT chest. 82 cc Isovue 370 intravenous contrast. Please note that all CT scans at this facility use dose modulation, iterative reconstruction, and/or weight-based dosing when appropriate to reduce radiation dose to as low as reasonably achievable. Comparison: 11/07/2021 Findings: Postoperative changes of bilateral mastectomy with implant reconstruction again noted. Post radiation change to the anterior right lung. No pulmonary infiltrate or suspicious nodule. No pulmonary edema or pleural effusion. No pneumothorax. No mediastinal, hilar or axillary adenopathy. No fracture or suspicious osseous lesion. Upper abdomen unremarkable. Impression: Post treatment changes. No change from the prior study. No acute disease. Please note that all CT scans at this facility use dose modulation, iterative reconstruction, and/or weight-based dosing when appropriate to reduce radiation dose to as low as reasonably achievable. Dictated by Chato Michael MD @ 02/04/2023 10:58:54 AM (Electronically Signed)
== END 2023-02-04 08:28 | disposition home or self-care (01) ==
LOC: CT 08:28
PROVIDERS: PCP Internal Medicine; Visit Provider Nurse Practitioner Family
DX: Z85.3 Personal history of malignant neoplasm of breast (principal)
CPT/HCPCS: 36415; 71260; 82565; Q9967

== ENCOUNTER 2023-05-20 08:08 | Outpatient (CLI) | payer MEDICARE, BC, SELFPAY | END 2023-05-20 08:09 | disposition home or self-care (01) | PROVIDERS: PCP Internal Medicine; Referring Provider Internal Medicine; Visit Provider Internal Medicine | DX: E78.5 Hyperlipidemia, unspecified (principal) | CPT/HCPCS: 80061 ==

== ENCOUNTER 2023-07-01 15:30 | Outpatient (RCR) | payer MEDICARE, BC, SELFPAY | END 2023-07-21 23:59 | disposition home or self-care (01) | LOC: CCIC 15:30 | PROVIDERS: PCP Internal Medicine; Visit Provider Physician Assistant | DX: C50.911 Malignant neoplasm of unspecified site of right female breast (principal); Z17.1 Estrogen receptor negative status [ER-]; C77.9 Secondary and unspecified malignant neoplasm of lymph node, unspecified; T85.9XXA Unspecified complication of internal prosthetic device, implant and graft, initial encounter | CPT/HCPCS: 99212; 99214; 99215 ==

== ENCOUNTER 2023-07-20 08:41 | Outpatient (CLI) | payer MEDICARE, BC, SELFPAY ==
--- NOTE | 2023-07-20 09:00 | CRLHL7_ITS ---
For Patients: As a result of the Century Cures Act, medical imaging exams and procedure reports are released immediately into your electronic medical record. You may view this report before your referring provider. If you have questions, please contact your health care provider. Indication: evaluation right breast implant, right chest w/ increased tightness, new ecchymosis Technique: CT Chest w/ 75cc isovue-370 Please note that all CT scans at this facility use dose modulation, iterative reconstruction, and/or weight-based dosing when appropriate to reduce radiation dose to as low as reasonably achievable. Comparison: 02/04/2023 Findings: The visualized thyroid is within normal limits. Stable subcentimeter left axillary and mediastinal lymph nodes. No pleural or pericardial effusion. Incidental splenule is again noted in the left upper quadrant. Adrenal glands are normal. No upper abdominal adenopathy. Postop changes bilateral mastectomy with implant reconstruction. Stable scar tissue adjacent to the right lateral implant. No fluid collection. The osseous structures are intact without fracture or suspicious lesion. Mild degenerative disc disease in the mid thoracic spine is present. Subpleural fibrotic change within the anterior right lung is again noted. No pulmonary edema or pneumothorax. No suspicious pulmonary nodule. Impression: Stable exam. Unchanged scar tissue adjacent to the lateral right breast implant and unchanged radiation pneumonitis within the anterior right lung. Please note that all CT scans at this facility use dose modulation, iterative reconstruction, and/or weight-based dosing when appropriate to reduce radiation dose to as low as reasonably achievable. Dictated by Chato Michael MD @ 07/20/2023 11:22:38 AM (Electronically Signed)
[2023-07-20 09:15] LABS: Creatinine* 0.7 mg/dL (0.5-1.5); Estimated Glomerular Filt Rate 96 ml/min
--- NOTE | 2023-07-20 10:15 | CRLHL7_ITS ---
For Patients: As a result of the Cures Act, medical imaging exams and procedure reports are released immediately into your electronic medical record. You may view this report before your referring provider. If you have questions, please contact your health care provider. RIGHT BREAST ULTRASOUND CLINICAL HISTORY: RIGHT chest with increased tightness, new ecchymosis. COMPARISON: CT chest 07/20/2023 and 02/04/2023. TECHNIQUE: Real-time ultrasound imaging of RIGHT breast with imaging documentation. Scanning was performed by both the technologist and the radiologist. FINDINGS: Targeted sonogram RIGHT breast extending from 9 o`clock through 2 o`clock performed. Postoperative changes of RIGHT breast mastectomy with implant reconstruction. Scar tissue noted lateral to the intact RIGHT breast implant. No adenopathy, fluid collection or suspicious mass. IMPRESSION: Negative ultrasound of the RIGHT breast tissue. No suspicious findings. RECOMMENDATIONS: Clinical follow-up. Results and recommendations were discussed with the patient at the time of the exam. BI-RADS Category 2: Benign A lay language report of this examination will be provided to the patient. Dictated by Chato Michael MD @ 07/20/2023 10:55:09 AM/amina MAURICIO/Dictated by: Chato Michael MD @ 07/20/2023 10:55:00 AM (Electronically Signed)
== END 2023-07-20 08:42 | disposition home or self-care (01) ==
LOC: CT 08:43
PROVIDERS: PCP Internal Medicine; Visit Provider Physician Assistant
DX: N64.59 Other signs and symptoms in breast (principal); T85.44XA Capsular contracture of breast implant, initial encounter
CPT/HCPCS: 36415; 71260; 76642; 82565; Q9967

== ENCOUNTER 2023-09-08 12:42 | Outpatient (CLI) | payer MEDICARE, BC, SELFPAY ==
--- OUTSIDE RECORDS SUMMARY | 2023-09-08 12:46 | XMS_ITS | Referral Summary ---
Author Name Unknown Organization [facility] Address [address] [place] [address]. [place] [address] Care Team Providers Care Manager Infrastructure Name Role Phone Linh Moeller MD Primary Care Provider +1 -[phone] Allergies Active Allergy Reactions Criticality Noted Date Comments No Known Allergies 06/23/2004 Medications Medication Sig Dispensed Refills Start Date End Date Status SERTRALINE HCL PO Take 100 mg by mouth daily 0 Active ezetimibe (ZETIA) 10 MG tablet Take 10 mg by mouth daily 0 Active SIMVASTATIN PO Take 80 mg by mouth At Bedtime 0 Active acetaminophen (TYLENOL) 500 MG tablet Take 500-1,000 mg by mouth every 6 hours as needed for mild pain 0 Active Multiple Vitamins-Minerals (MULTIVITAMIN ADULT PO) Take by mouth daily 0 Active oxyCODONE-acetaminophe n (PERCOCET) 5-325 MG tabletIndications:Stat us post breast reconstruction Take 1-2 tablets by mouth every 4 hours as needed for moderate to severe pain 30 tablet 0 06/13/2020 Active senna-docusate (SENOKOT-S/PERICOLACE) 8.6-50 MG tabletIndications:Stat us post breast reconstruction Take 1-2 tablets by mouth 2 times daily 30 tablet 0 06/13/2020 Active montelukast (SINGULAIR) 10 MG tabletIndications:Stat us post breast reconstruction Take 1 tablet (10 mg) by mouth At Bedtime 90 tablet 1 06/13/2020 Active Active Problems Problem Noted Date Diagnosed Date Advanced directives, counseling/discussion 09/24 Overview: Advance Care Planning 09/25/2015: ACP Facilitation Session: Rehana Tsang presented for ACP Facilitation session at the clinic. She was accompanied by self. Honoring Choices information provided and resources reviewed. She currently declined Pure hypercholesterolemia 06/23/2004 Symptomatic menopausal or female climacteric sta gustavo 06/23/2004 Immunizations Name Administration Dates Next Due HEPA 12/08/2010,10/31/2009 TDAP (Adacel,Boostrix) 04/28/2012 Social History Tobacco Use Types Packs/Day Years Used Date Smoking Tobacco: Never Smokeless Tobacco: Never Alcohol Use Standard Drinks/Week Comments Yes 0 (1 standard drink = 0.6 oz pur e alcohol) rare PHQ-2 Answer Date Recorded PHQ-2 Score 0 08/05/2018 Adolescent Education Answer Date Record ed Getting School Help Needed Not on file 05/01 Sex and Gender Information Value Date Recorded Sex Assigned at Not on file Gender Identity Not on file Sexual Orientation Not on file Last Filed Vital Signs Vital Sign Reading Time Taken Comments Blood Pressure 108/58 06/13/2020 3:15 PM CERTIFIED NOVELL ENGINEER Pulse 79 06/13/2020 2:00 PM CERTIFIED NOVELL ENGINEER Temperature 35.9 ??C (96.6 ??F) 06/13/2020 2:00 PM CS T Respiratory Rate 14 06/13/2020 3:15 PM CERTIFIED NOVELL ENGINEER Oxygen Saturation 99% 06/13/2020 3:15 PM CERTIFIED NOVELL ENGINEER Inhaled Oxygen Concentration - - Weight 71 kg (156 lb 9.6 oz) 06/13/2020 9:39 AM CERTIFIED NOVELL ENGINEER Height 167.6 cm (5' 6) 06/13/2020 9:39 AM CERTIFIED NOVELL ENGINEER Body Mass Index 25.28 06/13/2020 9:39 AM CERTIFIED NOVELL ENGINEER Plan of Treatment Not on file Medical Devices Implanted Type Area Dental Equipment Mechanic Device Identifier Shelf Expiration Date Model / Serial / Lot Natrelle Inspira Cohesive Breast Implant Smooth Round Moderate Profile, Style Scm 310cc Implanted:Qty: 1 on 06/13/2020 by Tiana Sierra MD at [facility] Left: Breast ALLERGAN [id number] 06/10/2024 [facility]-310 / [id number] / Explanted Type Area Dental Equipment Mechanic Device Identifier Shelf Expiration Date Model / Serial / Lot Port Explanted:Qty: 1 on 06/13/2020 by Tiana Sierra MD at [facility] Right: Chest Wall Care Teams Manager Infrastructure Relationship Specialty Start [place] [address] [place], [place] [id number] PCP - General Family Practice 09/25/15
--- OUTSIDE RECORDS SUMMARY | 2023-09-08 12:46 | XMS_ITS | Clinical Summary ---
Author Name Unknown Organization [facility] Address [place], [place] [address] Care Team Providers Care Tree Killer Name Role Phone Shilpi Nielson MD Primary Care Provider [phone]- [phone] Allergies No known active allergies Medications Medication Sig Dispensed Refills Start Date End Date Status LIPITOR 80 MG TAB take 1 tablet (80mg) by oral route once daily 0 Active CLIMARA 0.1 MG/24 HR TRANSDERM PATCH apply 1 patch by transdermal route once weekly cyclically, 3 weeks on and 1 week off 0 11/28/2007 Active ATIVAN 0.5 MG TABIndications:Adjus tment disorder with depressed mood take 1 tablets (1 mg) by oral route 3 times per day as needed, and may take 2 tabs at night. 50 1 11/28/2007 Active Family History Medical History Relation Name Comments Cancer-breast Maternal Grandmother Cancer-breast Other cousin Cancer-breast Sister GI Disease Sister peptic ulcer di sease Cancer-ovarian No Family History Relation Name Status Comments Maternal Grandmother Other Sister Social History Tobacco Use Types Packs/Day Years Used Date Smoking Tobacco: Never Alcohol Use Standard Drinks/Week Comments Yes 0 (1 standard drink = 0.6 oz pur e alcohol) rarely drinks alcohol Sex and Gender Information Value Date Recorded Sex Assigned at Not on file Gender Identity Not on file Sexual Orientation Not on file Obstetrics History Last Filed Vital Signs Vital Sign Reading Time Taken Comments Blood Pressure 103/67 11/28/2007 4:37 PM CDT Pulse 77 11/28/2007 4:37 PM CDT Temperature - - Respiratory Rate - - Oxygen Saturation - - Inhaled Oxygen Concentration - - Weight 60.9 kg (134 lb 3.2 oz) 11/28/2007 4:37 P M CDT Height - - Body Mass Index - - Plan of Treatment Health Maintenance Due Date Last Done Comments COVID-19 vaccine series (#1) 04/20/1958 Tdap 1968 Depression screening for age 12+ 1969 HIV for age 15-65 1972 BMI (ht and wt on same day) for age 18+ 10/19/1975 Hepatitis C screening for age 18-79 10/19/1975 Tetanus booster 1977 Pap test for age 21-65 1978 Colonoscopy through age 75 2002 Lipids for age 45-75 2002 Mammogram for age 45-75 2002 Zoster (shingles) series for age 50+ (1 of 2) 10/19/19 08 DEXA/DXA scan for age 65+ 2022 Pneumococcal series for age 65+ (1 of 1 - PCV) 023 Influenza for age 65+ 03/26/2023 Care Teams Tree Killer Relationship Specialty Start Date End Date Shilpi Nielson MD [address] [place] [address] PCP - General Internal Medicine 09/11/19
--- OUTSIDE RECORDS SUMMARY | 2023-09-08 12:46 | XMS_ITS | Clinical Summary ---
Author Name Unknown Organization [facility] Address [address] [place] [address]. [place] [address] Care Team Providers Care Pitching Coach Name Role Phone Linh Moeller MD Primary Care Provider +1 -[phone] Allergies Active Allergy Reactions Criticality Noted Date [...] Next Due HEPA 12/08/2010,10/31/2009 TDAP (Adacel,Boostrix) 04/28/2012 Family History Medical History Relation Comments Heart Disease Father [place] age 52 Breast Cancer Maternal Grandmother Relation [...] Comments Blood Pressure 108/58 06/13/2020 3:15 PM HORTICULTURAL SPECIALTY GROWER FIELD Pulse 79 06/13/2020 2:00 PM HORTICULTURAL SPECIALTY GROWER FIELD Temperature 35.9 ??C (96.6 ??F) 06/13/2020 2:00 PM CS T Respiratory Rate 14 06/13/2020 3:15 PM HORTICULTURAL SPECIALTY GROWER FIELD Oxygen Saturation 99% 06/13/2020 3:15 PM HORTICULTURAL SPECIALTY GROWER FIELD Inhaled Oxygen Concentration - - Weight 71 kg (156 lb 9.6 oz) 06/13/2020 9:39 AM HORTICULTURAL SPECIALTY GROWER FIELD Height 167.6 cm (5' 6) 06/13/2020 9:39 AM HORTICULTURAL SPECIALTY GROWER FIELD Body Mass Index 25.28 06/13/2020 9:39 AM HORTICULTURAL SPECIALTY GROWER FIELD Plan of Treatment Health Maintenance Due Date Last Done Comments ANNUAL REVIEW OF HM ORDERS 1957 CT COLONOGRAPHY 1957 DEXA 1957 FIT 1957 FLEX SIG 1957 GLUCOSE 1957 sDNA (Cologuard) 1957 HIV SCREENING 1972 HEPATITIS C SCREENING 10/19/1975 LIPID 1997 MAMMO SCREENING 09/23/2016 09/23/2014 RSV VACCINE ( & 60+) (1 - 1-dose 60+ series) 2017 ADVANCE CARE PLANNING 09/24/2020 09/25/2015, 016 DTAP/TDAP/TD IMMUNIZATION (2 - Td or Tdap) 04/28/2022 04/28/2012 FALL RISK ASSESSMENT 2022 MEDICARE ANNUAL WELLNESS VISIT 2022 06/23/2004 Pneumococcal Vaccine: 65+ Years (1 of 1 - PCV) 2022 COVID-19 Vaccine (3 - 2022- season) 2023 08/12/2020, 07/23/2020 INFLUENZA VACCINE (#1) 2023 , 05/11/2019, 06/14/2017, Additional history exists PHQ-2 (once per calendar year) 2023 09/25/2015 COLONOSCOPY 09/23/2024 09/23/2014 COLORECTAL CANCER SCREENING 09/23/2024 PAP Discontinued 09/23/2014 ZOSTER IMMUNIZATION Completed 06/12/2018, 8 HPV IMMUNIZATION Aged Out No longer e ligible based on patient's age to complete this topic IPV IMMUNIZATION Aged Out No longer e ligible based on patient's age to complete this topic MENINGITIS IMMUNIZATION Aged Out No l onger eligible based on patient's age to complete this topic RSV MONOCLONAL ANTIBODY Aged Out No l onger eligible based on patient's age to complete this topic Medical Devices Implanted Type Area Silverware Buffing Machine Operator Device Identifier Shelf Expiration Date Model / Serial / Lot Natrelle Inspira Cohesive Breast Implant Smooth Round Moderate Profile, Style Scm 310cc Implanted:Qty: 1 on 06/13/2020 by Tiana Sierra MD at [facility] Left: Breast ALLERGAN [id number] 06/10/2024 [facility]-310 / [id number] / Explanted Type Area Silverware Buffing Machine Operator Device Identifier Shelf Expiration Date Model / Serial / Lot Port Explanted:Qty: 1 on 06/13/2020 by Tiana Sierra MD at [facility] Right: Chest Wall Care Teams Pitching Coach Relationship Specialty [place] [address] [place] [address] PCP - General Family Practice 09/25/15
--- NOTE | 2023-09-08 13:00 | XR_ITS ---
Patient: NITESH WEAVER Facility:?[facility] Patient ID:?[id number] Site Patient ID:?[id number]. Site :?[id number] Study:?DEXA-Bone Density -09/08/2023 3:02:36 PM Ordering Physician:COLTON Final Report: DXA BONE MINERAL DENSITY STUDY Reason for exam: Asymptomatic menopausal state. Current height (in): 66. Weight (lb): 160. Menopause age: 42. Ethnicity: White. 1. Have you had a previous hip or vertebral fracture? No. 2. Have you had any fractures during your adult life which did not result from significant trauma (e.g., auto accident)? No. 3. Did either of your parents have a hip fracture? No. 4. Do you smoke? No. 5. Have you ever taken Glucocorticoids? No. 6. Do you have rheumatoid arthritis? No. 7. Do you have secondary osteoporosis? No. 8. Do you drink 3 or more alcoholic drinks per day? No. 9. Are you being treated for osteoporosis? No. 10. Have you ever taken any of the following medications: Actonel, Evista, Fosamax, Miacalcin, Reclast, Boniva, Forteo, HRT (i.e., estrogen/hormone therapy), Protelos, Prolia, Vitamin D, Calcium, other ? please specify. ANSWER: Yes, HRT (i.e. estrogen/hormone therapy). 11. Do you have any of the following medical conditions: Anorexia or bulimia, asthma or emphysema, end stage renal disease, hyperparathyroidism, any seizure disorders, cancer, inflammatory bowel diseases, hysterectomy, other ? please specify. ANSWER: Yes, hysterectomy. 12. What was your maximum height (inches)? 66. 13. Do you perform weight bearing exercise regularly? Yes. 14. Do you regularly consume dairy products? Yes. 15. Do you drink caffeinated beverages? Yes. If female: 16. At what age did your period start? 15. 17. Are you premenopausal? No. 18. How many full-term pregnancies have you had? 2. 19. Have you ever missed your period for more than 6 months in a row (not including or menopause)? No. TECHNIQUE: Bone mineral density study was performed using the [employer]. FINDINGS: The results of the study expressed as bone mineral density (BMD) are as follows: Lumbar spine L1 to L4: BMD: 0.891 g/cm2. T-score: -1.4. Z-score: 0.4 Neck Left: BMD: 0.686 g/cm2. T-score: -1.5. Z-score: 0.1 Right: BMD: 0.755 g/cm2. T-score: -0.9. Z-score: 0.7 Total Left: BMD: 0.900 g/cm2. T-score: -0.3. Z-score: 0.9 Right: BMD: 0.864 g/cm2. T-score: -0.6. Z-score: 0.6 IMPRESSION: Osteopenia. FRAX 10-year Fracture Risk Major Osteoporotic Fracture: 8.9% Hip Fracture: 0.9% Reported Risk Factors: [place] () Neck BMD=0.686, BMI=25.8 Dictated by: Chato Michael MD @09/14/2023 8:26:10 AM /Dictated by: Chato Michael MD @ 09/14/2023 8:26:00 AM Signed by:?Chato Michael MD @09/19/2023 6:25:55 AM (Electronic Signature)
== END 2023-09-08 12:43 | disposition home or self-care (01) ==
LOC: RAD 12:43
PROVIDERS: PCP Internal Medicine; Visit Provider Internal Medicine
DX: Z78.0 Asymptomatic menopausal state (principal); M85.88 Other specified disorders of bone density and structure, other site
CPT/HCPCS: 77080

== ENCOUNTER 2024-03-16 12:44 | Outpatient (RCR) | payer MEDICARE, BC, SELFPAY | END 2024-09-12 23:59 | disposition home or self-care (01) | LOC: CCIC 12:44 | PROVIDERS: PCP Internal Medicine; Visit Provider Internal Medicine Hematology & Oncology | DX: C50.811 Malignant neoplasm of overlapping sites of right female breast (principal); Z17.0 Estrogen receptor positive status [ER+]; C77.9 Secondary and unspecified malignant neoplasm of lymph node, unspecified | CPT/HCPCS: 99213; G0463 ==

== ENCOUNTER 2024-05-31 07:37 | Outpatient (CLI) | payer MEDICARE, BC, SELFPAY ==
--- OUTSIDE RECORDS SUMMARY | 2024-06-01 08:37 | XMS_ITS | Clinical Summary ---
Author Organization [facility] Address [address] [place] [address]. [place] [address] Care Team Providers Care Bar Tacker Sewing Machine Name Role Phone Linh Moeller MD Primary Care Provider +1 -[phone] Allergies Active Allergy Reactions Criticality Noted Date Comments No Known Allergies 06/23/2004 Medications SERTRALINE HCL PO Take 100 mg by mouth daily Active ezetimibe (ZETIA) 10 MG tablet Take 10 mg by mouth daily Active SIMVASTATIN PO Take 80 mg by mouth At Bedtime Active acetaminophen (TYLENOL) 500 MG tablet Take 500-1,000 mg by mouth every 6 hours as needed for mild pain Active Multiple Vitamins-Minerals (MULTIVITAMIN ADULT PO) Take by mouth daily Active oxyCODONE-acetamino phen (PERCOCET) 5-325 MG tabletIndications:S tatus post breast reconstruction Take 1-2 tablets by mouth every 4 hours as needed for moderate to severe pain 30 tablet 0 Active senna-docusate (SENOKOT-S/PERICOLA CE) 8.6-50 MG tabletIndications:S tatus post breast reconstruction Take 1-2 tablets by mouth 2 times daily 30 tablet 0 Active montelukast (SINGULAIR) 10 MG tabletIndications:S tatus post breast reconstruction Take 1 tablet (10 mg) by mouth At Bedtime 90 tablet 1 0 Active Active Problems Problem Noted Date Diagnosed Date Pure hypercholesterolemia 06/23/2004 Symptomatic menopausal or female climacteric sta gustavo 06/23/2004 Resolved Problems Problem Noted Date Diagnosed Date Resolved Date Advanced directives, counseling/discussion 09/25/2015 01/10/2024 Overview (09/25/2015): Advance Care Planning 09/25/2015: ACP Facilitation Session: Rehana Tsang presented for ACP Facilitation session at the clinic. She was accompanied by self. Honoring Choices information provided and resources reviewed. She currently declined Immunizations Name Administration Dates Next Due HEPA 12/08/2010,10/31/2009 TDAP (Adacel,Boostrix) 04/28/2012 Family History Medical History Relation Comments Heart Disease Father [place] age 52 Breast Cancer Maternal Grandmother Relation [...] School Help Needed Not on file 05/01 Comments No Sex and Gender Information Value Date Recorded Sex Assigned at Not on file Legal Sex Female 3:37 AM WORK COUNSELOR Gender Identity Not on file Sexual Orientation Not on file Last Filed Vital Signs Vital Sign Reading Time Taken Comments Blood Pressure 108/58 06/13/2020 3:15 PM WORK COUNSELOR Pulse 79 06/13/2020 2:00 PM WORK COUNSELOR Temperature 35.9 ??C (96.6 ??F) 06/13/2020 2:00 PM CS T Respiratory Rate 14 06/13/2020 3:15 PM WORK COUNSELOR Oxygen Saturation 99% 06/13/2020 3:15 PM WORK COUNSELOR Inhaled Oxygen Concentration - - Weight 71 kg (156 lb 9.6 oz) 06/13/2020 9:39 AM WORK COUNSELOR Height 167.6 cm (5' 6) 06/13/2020 9:39 AM WORK COUNSELOR Body Mass Index 25.28 06/13/2020 9:39 AM WORK COUNSELOR Plan of Treatment Not on file Medical Devices Implanted Type Area Clerk Specialist Device Identifier Shelf Expiration Date Model / Serial / Lot Patrick [employer] Cohesive Breast Implant Smooth Round Moderate Profile, Style [facility] 310cc Implanted:Qty: 1 on 06/13/2020 by Tiana Sierra MD at [facility] Left: Breast ALLERGAN [id number] 06/10/2024 [facility]-310 / [id number] / Explanted Type Area Clerk Specialist Device Identifier Shelf Expiration Date Model / Serial / Lot Port Explanted:Qty: 1 on 06/13/2020 by Tiana Sierra MD at [facility] Right: Chest Wall Care Teams Bar Tacker Sewing Machine Relationship Specialty [place] [address] [place] [address] PCP - General Family Practice 09/25/15
--- OUTSIDE RECORDS SUMMARY | 2024-06-01 08:37 | XMS_ITS | Referral Summary ---
Author Organization [facility] Address [address] [place] [address]. [place] [address] Care Team Providers Care Steel Spar Operator Name Role Phone Linh Moeller MD Primary Care Provider +1 -[phone] Allergies Active Allergy Reactions Criticality Noted Date [...] on file Legal Sex Female 3:37 AM CHECKROOM CHIEF Gender Identity Not on file Sexual Orientation Not on file Last Filed Vital Signs Vital Sign Reading Time Taken Comments Blood Pressure 108/58 06/13/2020 3:15 PM CHECKROOM CHIEF Pulse 79 06/13/2020 2:00 PM CHECKROOM CHIEF Temperature 35.9 ??C (96.6 ??F) 06/13/2020 2:00 PM CS T Respiratory Rate 14 06/13/2020 3:15 PM CHECKROOM CHIEF Oxygen Saturation 99% 06/13/2020 3:15 PM CHECKROOM CHIEF Inhaled Oxygen Concentration - - Weight 71 kg (156 lb 9.6 oz) 06/13/2020 9:39 AM CHECKROOM CHIEF Height 167.6 cm (5' 6) 06/13/2020 9:39 AM CHECKROOM CHIEF Body Mass Index 25.28 06/13/2020 9:39 AM CHECKROOM CHIEF Plan of Treatment Not on file Medical Devices Implanted Type Area Cream Maker Device Identifier Shelf Expiration Date Model / Serial / Lot Natrelle Inspira Cohesive Breast Implant Smooth Round Moderate Profile, Style Scm 310cc Implanted:Qty: 1 on 06/13/2020 by Tiana Sierra MD at [facility] Left: Breast ALLERGAN [id number] 06/10/2024 [facility]-310 / [id number] / Explanted Type Area Cream Maker Device Identifier Shelf Expiration Date Model / Serial / Lot Port Explanted:Qty: 1 on 06/13/2020 by Tiana Sierra MD at [facility] Right: Chest Wall Care Teams Steel Spar Operator Relationship Specialty [place] [address] [place] [address] PCP - General Family Practice 09/25/15
--- OUTSIDE RECORDS SUMMARY | 2024-06-01 08:37 | XMS_ITS | Clinical Summary ---
Author Organization [facility] Address [place], [place] [address] Care Team Providers Care Auto Inspection Specialist Name Role Phone Shilpi Nielson MD Primary Care Provider +1- [phone] Allergies No known active allergies Medications Medication [...] Health Maintenance Due Date Last Done Comments Tdap 1968 Depression screening for age 12+ 1969 BMI (ht and wt on same day) for age 18+ 10/19/1975 Hepatitis C screening for age 18-79 10/19/1975 Tetanus booster 1977 Colonoscopy through age 75 2002 Lipids for age 45-75 2002 Mammogram for age 45-75 2002 Zoster (shingles) series for age 50+ (1 of 2) 10/19/19 08 DEXA/DXA scan for age 65+ 2022 Pneumococcal series for age 65+ (1 of 1 - PCV) 023 COVID-19 vaccine series (2023- season) 4 Influenza for age 65+ 03/26/2024 Care Teams Auto Inspection Specialist Relationship Specialty Start Date End Date Shilpi Nielson MD [address] [place] [address] PCP - General Internal Medicine 09/11/19
== END 2024-05-31 07:38 | disposition home or self-care (01) ==
LOC: NFLDREF 06-01 08:36
PROVIDERS: PCP Internal Medicine; Referring Provider Internal Medicine; Visit Provider Internal Medicine
DX: E78.5 Hyperlipidemia, unspecified (principal)
CPT/HCPCS: 80061

== ENCOUNTER 2024-10-19 13:16 | Outpatient (RCR) | payer MEDICARE, BC, SELFPAY | END 2025-04-17 23:59 | disposition home or self-care (01) | LOC: CCIC 13:16 | PROVIDERS: PCP Internal Medicine; Visit Provider Internal Medicine Hematology & Oncology | DX: C50.811 Malignant neoplasm of overlapping sites of right female breast (principal); Z17.0 Estrogen receptor positive status [ER+]; Z90.13 Acquired absence of bilateral breasts and nipples | CPT/HCPCS: 99213; G0463 ==

== ENCOUNTER 2025-07-17 07:41 | Outpatient (CLI) | payer MEDICARE, BC, SELFPAY | END 2025-07-17 07:42 | disposition home or self-care (01) | LOC: NFLDREF 07-21 20:03 | PROVIDERS: PCP Internal Medicine; Referring Provider Internal Medicine; Visit Provider Internal Medicine | DX: E78.5 Hyperlipidemia, unspecified (principal) | CPT/HCPCS: 80061 ==